=== PATIENT | male | born 1990 | race Caucasian/White ===

== ENCOUNTER 2017-06-27 11:55 | Inpatient (IN) | payer SELFPAY, MEDICAID ==
[2017-06-27] MEDS: NS 1,000 ML IV (12:15)
[2017-06-27 12:49] LABS: BASO # 0.1 10^3/uL (0.0-0.2); BASO % 0.6 % (0.0-1.0); EOS % 0.2 % (0.0-3.0); HEMATOCRIT 46.4 % (42.0-52.0); HEMOGLOBIN 16.8 g/dl (14.0-18.0); IMMATURE GRANULOCYTE % 0.6 % (0-3.0); LYMPH # 0.7 10^3/uL (1.5-6.5); LYMPH % 8.6 % (24.0-44.0); MEAN CORPUSCULAR HEMOGLOBIN 35.1 pg (27.0-33.0); MEAN CORPUSCULAR HGB CONC 36.2 g/dl (32.0-36.5); MEAN CORPUSCULAR VOLUME 96.9 fl (80.0-96.0); MONO # 0.4 10^3/uL (0.0-0.8); MONO % 4.5 % (0.0-5.0); NEUTROPHILS # 7.1 10^3/uL (1.8-7.7); NEUTROPHILS % 85.5 % (36.0-66.0); PLATELET COUNT, AUTOMATED 179 10^3/uL (150-450); RED BLOOD COUNT 4.79 10^6/uL (4.30-6.10); RED CELL DISTRIBUTION WIDTH 12.8 % (11.5-14.5); WHITE BLOOD COUNT 8.3 10^3/uL (4.0-10.0)
[2017-06-27] MEDS: PANTOPRAZOLE 40MG INJ (PROTONIX) (C9113) IV (13:15)
[2017-06-27 13:16] LABS: AMMONIA 48 uMOL/L (<32)
[2017-06-27] MEDS: OXAZEPAM 10 MG CAP PO (13:17)
[2017-06-27 13:18] LABS: OSMOLALITY SERUM 289 MOSM/KG (275-295)
[2017-06-27 13:21] LABS: ALBUMIN 4.8 GM/DL (3.2-5.2); ALKALINE PHOSPHATASE 126 U/L (45-117); ALT/SGPT 143 U/L (12-78); ANION GAP 14 MEQ/L (8-16); AST/SGOT 315 U/L (7-37); BILIRUBIN,DIRECT 0.6 MG/DL (0.0-0.2); BILIRUBIN,TOTAL 1.5 MG/DL (0.2-1.0); BLOOD UREA NITROGEN 4 MG/DL (7-18); CALCIUM LEVEL 9.8 MG/DL (8.5-10.1); CARBON DIOXIDE LEVEL 24 MEQ/L (21-32); CHLORIDE LEVEL 98 MEQ/L (98-107); CPK CREATINE PHOSPHOKINASE 106 U/L (39-308); CREATININE FOR GFR 0.96 MG/DL (0.70-1.30); ETHYL ALCOHOL (ETHANOL) < 0.003 % (0.000-0.010); FREE THYROXINE INDEX 3.9 % (1.4-3.8); GLOMERULAR FILTRATION RATE > 60.0 (>60); GLUCOSE, FASTING 159 MG/DL (70-100); POTASSIUM SERUM 3.8 MEQ/L (3.5-5.1); SALICYLATE LEVEL 2.6 MG/DL (5.0-30.0); SODIUM LEVEL 136 MEQ/L (136-145); T UPTAKE 36 % (33-40); THYROXINE (T4) 10.7 UG/DL (4.5-12.0); TROPONIN I < 0.02 NG/ML (< 0.10)
[2017-06-27] MEDS: MULTIVITAMIN -ADULT INJECTION 10 ML, THIAMINE INJection 100 MG, FOLIC ACID 1 MG in NS 1... IV ×2 (13:21→21:39)
[2017-06-27] MEDS: ONDANSETRON 4MG/2ML VIAL (J2405) IV (13:25)
[2017-06-27 13:26] LABS: MB/CK RELATIVE INDEX 0.94 (< OR =4)
[2017-06-27 13:27] LABS: ACETAMINOPHEN LEVEL < 2.0 UG/ML (10.0-30.0)
[2017-06-27 13:28] LABS: LACTIC ACID SEPSIS PROTOCOL 5.6 MMOL/L (0.4-2.0)
[2017-06-27 13:49] LABS: AMPHETAMINES LEVEL URINE NEGATIVE (NEGATIVE); BARBITURATES URINE NEGATIVE (NEGATIVE); BENZODIAZEPINES URINE NEGATIVE (NEGATIVE); CANNABINOIDS URINE POSITIVE (NEGATIVE); COCAINE METABOLITE URINE NEGATIVE (NEGATIVE); METHADONE URINE NEGATIVE (NEGATIVE); OPIATES URINE NEGATIVE (NEGATIVE); PHENCYCLIDINE URINE NEGATIVE (NEGATIVE)
[2017-06-27] MEDS: SUCRALFATE 1 GM TAB PO (13:59)
[2017-06-27] MEDS: LORazepam 2 MG/ML VIAL (J2060) IV (13:59)
[2017-06-27 14:37] LABS: INR 0.89; PROTHROMBIN TIME 12.1 SECONDS (12.4-14.5)
[2017-06-27] MEDS ORDERED: LORazepam 2 MG/ML VIAL (J2060) IV (14:45)
[2017-06-27] MEDS: LACTULOSE 20 GM/30 ML SYRUP UD PO ×2 (16:22→17:00)
[2017-06-27] MEDS: cloNIDine 0.2 MG TAB PO ×3 (16:24→23:55)
[2017-06-27] MEDS ORDERED: GLUCAGON FOR INJ 1 MG VIAL (J1610) SC (16:45)
[2017-06-27] MEDS ORDERED: GLUCOSE 4 GM CHEW TABLET PO (16:45)
[2017-06-27] MEDS ORDERED: DEXTROSE 50% 50 ML SYRINGE IV (16:45)
[2017-06-27] MEDS: OXAZEPAM 15 MG CAP PO ×2 (17:38→23:55)
[2017-06-27 18:38] LABS: LACTIC ACID SEPSIS PROTOCOL 1.1 MMOL/L (0.4-2.0)
[2017-06-27] MEDS: HEPARIN SOD (PORCINE) 5000 UNITS/ML VIAL SC (21:39)
[2017-06-28] MEDS: cloNIDine 0.2 MG TAB PO ×2 (04:00→08:00)
[2017-06-28 05:18] LABS: BASO % 0.4 % (0.0-1.0); EOS % 0.4 % (0.0-3.0); HEMATOCRIT 40.1 % (42.0-52.0); IMMATURE GRANULOCYTE % 0.3 % (0-3.0); LYMPH % 13.9 % (24.0-44.0); MEAN CORPUSCULAR HEMOGLOBIN 34.6 pg (27.0-33.0); MEAN CORPUSCULAR HGB CONC 34.9 g/dl (32.0-36.5); MONO # 0.6 10^3/uL (0.0-0.8); MONO % 7.8 % (0.0-5.0); NEUTROPHILS # 5.8 10^3/uL (1.8-7.7); NEUTROPHILS % 77.2 % (36.0-66.0); PLATELET COUNT, AUTOMATED 127 10^3/uL (150-450); RED BLOOD COUNT 4.05 10^6/uL (4.30-6.10); RED CELL DISTRIBUTION WIDTH 12.8 % (11.5-14.5); WHITE BLOOD COUNT 7.5 10^3/uL (4.0-10.0)
[2017-06-28 05:50] LABS: ALBUMIN 3.5 GM/DL (3.2-5.2); ALBUMIN/GLOBULIN RATIO 1.35 (1.00-1.93); ALKALINE PHOSPHATASE 90 U/L (45-117); ALT/SGPT 92 U/L (12-78); ANION GAP 8 MEQ/L (8-16); AST/SGOT 148 U/L (7-37); BILIRUBIN,TOTAL 1.2 MG/DL (0.2-1.0); BLOOD UREA NITROGEN 3 MG/DL (7-18); CALCIUM LEVEL 8.5 MG/DL (8.5-10.1); CARBON DIOXIDE LEVEL 29 MEQ/L (21-32); CHLORIDE LEVEL 102 MEQ/L (98-107); CREATININE FOR GFR 0.71 MG/DL (0.70-1.30); GLOMERULAR FILTRATION RATE > 60.0 (>60); GLUCOSE, FASTING 77 MG/DL (70-100); POTASSIUM SERUM 3.2 MEQ/L (3.5-5.1); SODIUM LEVEL 139 MEQ/L (136-145); TOTAL PROTEIN 6.1 GM/DL (6.4-8.2)
[2017-06-28] MEDS: OXAZEPAM 15 MG CAP PO (05:54)
[2017-06-28] MEDS: HEPARIN SOD (PORCINE) 5000 UNITS/ML VIAL SC (05:54)
[2017-06-28] MEDS: FOLIC ACID 1 MG TAB PO (09:00)
[2017-06-28] MEDS: MULTIVITAMINS/MINERALS THERAP 1 TAB PO (09:00)
[2017-06-28] MEDS: THIAMINE 100 MG TAB PO (09:00)
[2017-06-28] MEDS: NICOTINE 21MG/24HR 1 EA TRANSDERMAL TD (11:01)
[2017-06-28] MEDS: POTASSIUM CHLORIDE 10 MEQ SR TABLET PO (11:02)
[2017-06-28 11:09] LABS: PROLACTIN 11.4 NG/ML (2.1-17.7)
[2017-06-28] MEDS ORDERED: OXAZEPAM 15 MG CAP PO (11:15)
== END 2017-06-28 12:00 | disposition left against medical advice (07) | DRG 770 ==
LOC: M ED 11:55 → M ED INP 14:30 → M PCU 16:59
DX: F10.239 Alcohol dependence with withdrawal, unspecified (principal); G93.41 Metabolic encephalopathy; R56.9 Unspecified convulsions; I42.6 Alcoholic cardiomyopathy; K70.10 Alcoholic hepatitis without ascites; E78.5 Hyperlipidemia, unspecified; F14.10 Cocaine abuse, uncomplicated; F12.10 Cannabis abuse, uncomplicated

== ENCOUNTER 2017-09-08 06:57 | Inpatient (IN) | payer OTHER, MEDICAID ==
[~2017-09-08 06:57] MED LIST: LORazepam 2 MG/ML VIAL (J2060) As Ordered
[2017-09-08] MEDS: DILUENT IV (07:12)
[2017-09-08] MEDS: NS IV (07:12)
[2017-09-08] MEDS: LORazepam 2 MG/ML VIAL (J2060) IV ×3 (07:14→08:52)
[2017-09-08] MEDS ORDERED: levETIRAcetam INJection 1,000 MG in D5W 100 ML IV (07:15)
[2017-09-08] MEDS: levETIRAcetam INJection 1,000 MG in D5W 100 ML IV (07:20)
[2017-09-08 07:22] LABS: ABG BASE EXCESS -10.5 (-2.0-2.0); ABG O2 SATURATION 99.2 % (95.0-99.0); ABG PARTIAL PRESSURE CO2 55.3 mmHg (35.0-45.0); ABG PARTIAL PRESSURE O2 222.3 mmHg (75.0-100.0); ABG STANDARD HCO3 16.6 MEQ/L (22.0-26.0); ABG TOTAL CO2 20.7 MEQ/L (22.0-29.0); ABG pH (ARTERIAL) 7.155 UNITS (7.350-7.450)
[2017-09-08 07:35] LABS: BASO # 0.1 10^3/uL (0.0-0.2); BASO % 0.4 % (0.0-1.0); EOS % 0.1 % (0.0-3.0); HEMATOCRIT 50.6 % (42.0-52.0); HEMOGLOBIN 17.8 g/dl (13.5-17.5); IMMATURE GRANULOCYTE % 1.4 % (0-3.0); LYMPH % 6.2 % (24.0-44.0); MEAN CORPUSCULAR HEMOGLOBIN 35.2 pg (27.0-33.0); MEAN CORPUSCULAR HGB CONC 35.2 g/dl (32.0-36.5); MEAN CORPUSCULAR VOLUME 100.2 fl (80.0-96.0); MONO # 0.2 10^3/uL (0.0-0.8); MONO % 1.3 % (0.0-5.0); NEUTROPHILS # 14.5 10^3/uL (1.8-7.7); NEUTROPHILS % 90.6 % (36.0-66.0); PLATELET COUNT, AUTOMATED 162 10^3/uL (150-450); RED BLOOD COUNT 5.05 10^6/uL (4.30-6.10); RED CELL DISTRIBUTION WIDTH 12.9 % (11.5-14.5)
[2017-09-08 08:03] LABS: OSMOLALITY SERUM 292 MOSM/KG (275-295)
[2017-09-08 08:03] LABS: AMMONIA 79 uMOL/L (<32)
[2017-09-08] MEDS ORDERED: PROPOFOL 1,000 MG/100 ML VIAL As Ordered (08:03)
[2017-09-08] MEDS: ETOMIDATE INJ 20MG/10ML VIAL IV (08:06)
[2017-09-08] MEDS: SUCCINYLCHOLINE INJ 200 MG/10 ML VIAL (J0330) IV (08:06)
[2017-09-08 08:10] LABS: ALBUMIN 4.5 GM/DL (3.2-5.2); ALBUMIN/GLOBULIN RATIO 1.45 (1.00-1.93); ALKALINE PHOSPHATASE 150 U/L (45-117); ALT/SGPT 191 U/L (12-78); ANION GAP 26 MEQ/L (8-16); AST/SGOT 565 U/L (7-37); BILIRUBIN,DIRECT 1.3 MG/DL (0.0-0.2); BILIRUBIN,TOTAL 2.3 MG/DL (0.2-1.0); BLOOD UREA NITROGEN 7 MG/DL (7-18); CARBON DIOXIDE LEVEL 21 MEQ/L (21-32); CHLORIDE LEVEL 91 MEQ/L (98-107); CREATININE FOR GFR 2.12 MG/DL (0.70-1.30); ETHYL ALCOHOL (ETHANOL) < 0.003 % (0.000-0.010); GLOMERULAR FILTRATION RATE 40.4 (>60); POTASSIUM SERUM 3.7 MEQ/L (3.5-5.1); SALICYLATE LEVEL < 1.7 MG/DL (5.0-30.0); SODIUM LEVEL 138 MEQ/L (136-145); TOTAL PROTEIN 7.6 GM/DL (6.4-8.2)
[2017-09-08 08:10] LABS: LACTIC ACID SEPSIS PROTOCOL 11.3 MMOL/L (0.4-2.0)
[2017-09-08] MEDS: PROPOFOL 1,000 MG in APPROPRIATE DILUENT 1 EA IV ×3 (08:15→22:29)
[2017-09-08 08:19] LABS: CPK CREATINE PHOSPHOKINASE 1479 U/L (39-308)
[2017-09-08] MEDS ORDERED: MIDAZOLAM HCL 50 MG in D5W 40 ML IV (08:45)
[2017-09-08 08:51] LABS: GLUCOSE, FASTING 31 MG/DL (70-100)
[2017-09-08 08:56] LABS: ACETAMINOPHEN LEVEL < 2.0 UG/ML (10.0-30.0)
[2017-09-08] MEDS ORDERED: DEXTROSE 50% 50 ML SYRINGE As Ordered (08:58)
[2017-09-08] MEDS: THIAMINE HCL 200 MG/2 ML VIAL (J3411) IM ×2 (09:00→09:28)
[2017-09-08 09:05] LABS: ABG BASE EXCESS -8.2 (-2.0-2.0); ABG HCO3 19.3 MEQ/L (22.0-26.0); ABG O2 SATURATION 97.6 % (95.0-99.0); ABG PARTIAL PRESSURE CO2 46.8 mmHg (35.0-45.0); ABG PARTIAL PRESSURE O2 116.6 mmHg (75.0-100.0); ABG TOTAL CO2 20.8 MEQ/L (22.0-29.0)
[2017-09-08 09:07] LABS: ABG pH (ARTERIAL) 7.234 UNITS (7.350-7.450)
[2017-09-08] MEDS: DEXTROSE 50% 50 ML SYRINGE IV (09:07)
[2017-09-08] MEDS: MIDAZOLAM HCL 100 MG in D5W 80 ML IV (09:16)
[2017-09-08 09:49] LABS: BEDSIDE GLUCOSE 149 MG/DL (70-105)
[2017-09-08 09:53] LABS: MAGNESIUM LEVEL 2.5 MG/DL (1.8-2.4)
[2017-09-08 10:15] LABS: AMPHETAMINES LEVEL URINE NEGATIVE (NEGATIVE); BARBITURATES URINE NEGATIVE (NEGATIVE); BENZODIAZEPINES URINE POSITIVE (NEGATIVE); CANNABINOIDS URINE POSITIVE (NEGATIVE); COCAINE METABOLITE URINE NEGATIVE (NEGATIVE); METHADONE URINE NEGATIVE (NEGATIVE); OPIATES URINE NEGATIVE (NEGATIVE); PHENCYCLIDINE URINE NEGATIVE (NEGATIVE)
[2017-09-08] MEDS: METOPROLOL 5 MG/5 ML VIAL IV (10:15)
[2017-09-08] MEDS ORDERED: DEXTROSE 50% 50 ML SYRINGE IV (10:45)
[2017-09-08] MEDS ORDERED: GLUCOSE 4 GM CHEW TABLET PO (10:45)
[2017-09-08] MEDS ORDERED: GLUCAGON FOR INJ 1 MG VIAL (J1610) SC (10:45)
[2017-09-08 11:15] LABS: ABG O2 SATURATION 98.2 % (95.0-99.0)
[2017-09-08 11:17] LABS: ABG BASE EXCESS -5.1 (-2.0-2.0); ABG HCO3 21.7 MEQ/L (22.0-26.0); ABG PARTIAL PRESSURE CO2 46.6 mmHg (35.0-45.0); ABG PARTIAL PRESSURE O2 123.4 mmHg (75.0-100.0); ABG STANDARD HCO3 20.3 MEQ/L (22.0-26.0); ABG TOTAL CO2 23.1 MEQ/L (22.0-29.0); ABG pH (ARTERIAL) 7.286 UNITS (7.350-7.450)
[2017-09-08] MEDS: D5W/0.9% SODIUM CHLORIDE 1,000 ML IV ×2 (11:19→22:27)
[2017-09-08] MEDS: PANTOPRAZOLE 40MG INJ (PROTONIX) (C9113) IV (12:04)
[2017-09-08 12:13] LABS: BEDSIDE GLUCOSE 121 MG/DL (70-105)
[2017-09-08] MEDS: HumaLOG INSULIN (NovoLOG) PER UNIT SC ×2 (12:15→18:05)
[2017-09-08] MEDS: IPRATROPIUM 0.5MG/ALBUTEROL 2.5MG INH SOL UD 3ML (DUONEB)(J7620) NEB ×2 (12:54→20:18)
[2017-09-08] MEDS ORDERED: SUCCINYLCHOLINE 100 MG/5 ML SYRINGE (J0330) (13:56)
[2017-09-08] MEDS ORDERED: ETOMIDATE INJ 20MG/10ML VIAL (13:56)
[2017-09-08] MEDS: LACTULOSE 20 GM/30 ML SYRUP UD PO (14:29)
[2017-09-08] MEDS: HEPARIN SOD (PORCINE) 5000 UNITS/ML VIAL SC ×2 (14:30→20:26)
[2017-09-08 14:39] LABS: ABG BASE EXCESS -4.2 (-2.0-2.0); ABG HCO3 19.6 MEQ/L (22.0-26.0); ABG O2 SATURATION 98.8 % (95.0-99.0); ABG PARTIAL PRESSURE CO2 32.6 mmHg (35.0-45.0); ABG PARTIAL PRESSURE O2 126.2 mmHg (75.0-100.0); ABG STANDARD HCO3 21.1 MEQ/L (22.0-26.0); ABG TOTAL CO2 20.6 MEQ/L (22.0-29.0); ABG pH (ARTERIAL) 7.396 UNITS (7.350-7.450)
[2017-09-08 15:21] LABS: ALBUMIN 3.4 GM/DL (3.2-5.2); ANION GAP 14 MEQ/L (8-16); BLOOD UREA NITROGEN 10 MG/DL (7-18); CALCIUM LEVEL 7.3 MG/DL (8.5-10.1); CARBON DIOXIDE LEVEL 23 MEQ/L (21-32); CHLORIDE LEVEL 101 MEQ/L (98-107); CREATININE FOR GFR 2.08 MG/DL (0.70-1.30); GLOMERULAR FILTRATION RATE 41.3 (>60); GLUCOSE, FASTING 123 MG/DL (70-100); PHOSPHORUS LEVEL 3.5 MG/DL (2.5-4.9); POTASSIUM SERUM 2.9 MEQ/L (3.5-5.1); SODIUM LEVEL 138 MEQ/L (136-145)
[2017-09-08 15:27] LABS: CK-MB VALUE MASS 147.3 NG/ML (<3.6)
[2017-09-08 16:15] LABS: CPK CREATINE PHOSPHOKINASE 33300 U/L (39-308); MB/CK RELATIVE INDEX 0.44 (< OR =4)
[2017-09-08] MEDS: KCL 10MEQ/100ML SWI (KRUN) 10 MEQ in APPROPRIATE DILUENT 1 EA IV ×3 (16:30→18:56)
[2017-09-08 18:04] LABS: BEDSIDE GLUCOSE 125 MG/DL (70-105)
[2017-09-08] MEDS: NYSTATIN 100,000 UNITS/GM TOPICAL PWD 15 GM TOP (20:25)
[2017-09-08] MEDS: CHLORHEXIDINE ORAL RINSE 0.12%/15ML 120ML BOTTLE MT ×3 (20:26→21:00)
[2017-09-09] MEDS: METOPROLOL 5 MG/5 ML VIAL IV ×3 (00:50→06:37)
[2017-09-09 01:05] LABS: BEDSIDE GLUCOSE 129 MG/DL (70-105)
[2017-09-09] MEDS: HumaLOG INSULIN (NovoLOG) PER UNIT SC ×4 (01:10→18:00)
[2017-09-09] MEDS: PROPOFOL 1,000 MG in APPROPRIATE DILUENT 1 EA IV ×4 (03:40→20:44)
[2017-09-09 05:13] LABS: HEMATOCRIT 51.2 % (42.0-52.0); MEAN CORPUSCULAR HEMOGLOBIN 35.2 pg (27.0-33.0); MEAN CORPUSCULAR HGB CONC 35.2 g/dl (32.0-36.5); RED BLOOD COUNT 5.12 10^6/uL (4.30-6.10)
[2017-09-09 05:21] LABS: INR 1.38; PROTHROMBIN TIME 17.3 SECONDS (12.4-14.5)
[2017-09-09 05:22] LABS: PARTIAL THROMBOPLASTIN TIME 48.6 SECONDS (26.8-37.9)
[2017-09-09 05:27] LABS: AMMONIA 82 uMOL/L (<32)
[2017-09-09 05:49] LABS: ADD MANUAL DIFFER YES; DIFF SLIDE NUMBER 71; PLATELET COUNT, AUTOMATED 75 10^3/uL (150-450); POSITIVE MORPH POS FLAG
[2017-09-09 05:51] LABS: ALBUMIN 3.1 GM/DL (3.2-5.2); ALBUMIN/GLOBULIN RATIO 1.24 (1.00-1.93); ALKALINE PHOSPHATASE 100 U/L (45-117); ALT/SGPT 808 U/L (12-78); ANION GAP 15 MEQ/L (8-16); BILIRUBIN,TOTAL 3.1 MG/DL (0.2-1.0); BLOOD UREA NITROGEN 16 MG/DL (7-18); CALCIUM LEVEL 7.1 MG/DL (8.5-10.1); CARBON DIOXIDE LEVEL 21 MEQ/L (21-32); CHLORIDE LEVEL 104 MEQ/L (98-107); CHOLESTEROL LEVEL 147 MG/DL (< 200); CREATININE FOR GFR 3.59 MG/DL (0.70-1.30); GLUCOSE, FASTING 116 MG/DL (70-100); LDH LACTATE DEHYDROGENASE 2842 U/L (87-241); PHOSPHORUS LEVEL 2.3 MG/DL (2.5-4.9); POTASSIUM SERUM 3.2 MEQ/L (3.5-5.1); SODIUM LEVEL 140 MEQ/L (136-145); TOTAL PROTEIN 5.6 GM/DL (6.4-8.2); TRIGLYCERIDES LEVEL 521 MG/DL (<150)
[2017-09-09 05:56] LABS: BANDS 1 % (< 11); EOSINOPHILS 1 % (0-5); LYMPHOCYTES 6 % (16-52); NEUTROPHILS 92 % (35-75); PLATELET ESTIMATE DECREASED (NORMAL)
[2017-09-09] MEDS: HEPARIN SOD (PORCINE) 5000 UNITS/ML VIAL SC ×3 (06:00→22:00)
[2017-09-09] MEDS: MIDAZOLAM INJ 2 MG/2 ML VIAL (J2250) IV ×9 (06:03→23:24)
[2017-09-09 06:26] LABS: BEDSIDE GLUCOSE 119 MG/DL (70-105)
[2017-09-09] MEDS: D5W/0.9% SODIUM CHLORIDE 1,000 ML IV (06:27)
[2017-09-09] MEDS ORDERED: METOPROLOL 5 MG/5 ML VIAL As Ordered (06:27)
[2017-09-09 06:28] LABS: ABG BASE EXCESS -2.6 (-2.0-2.0); ABG HCO3 21.3 MEQ/L (22.0-26.0); ABG O2 SATURATION 91.1 % (95.0-99.0); ABG PARTIAL PRESSURE CO2 35.2 mmHg (35.0-45.0); ABG PARTIAL PRESSURE O2 60.1 mmHg (75.0-100.0); ABG STANDARD HCO3 22.1 MEQ/L (22.0-26.0); ABG TOTAL CO2 22.4 MEQ/L (22.0-29.0)
[2017-09-09 06:33] LABS: AST/SGOT 5600 U/L (7-37)
[2017-09-09] MEDS: IPRATROPIUM 0.5MG/ALBUTEROL 2.5MG INH SOL UD 3ML (DUONEB)(J7620) NEB ×4 (07:12→20:03)
[2017-09-09 07:57] LABS: CPK CREATINE PHOSPHOKINASE 78836 U/L (39-308)
[2017-09-09] MEDS ORDERED: LIDOCAINE 1% MDV 20ML VIAL As Ordered (09:52)
[2017-09-09] MEDS: HEPARIN 1,000 UNITS/ML 10ML VIAL (FOR RADIOLOGY& DIALYSIS ONLY) IV (10:30)
[2017-09-09] MEDS: PANTOPRAZOLE 40MG INJ (PROTONIX) (C9113) IV (11:39)
[2017-09-09] MEDS: NYSTATIN 100,000 UNITS/GM TOPICAL PWD 15 GM TOP ×2 (11:39→20:51)
[2017-09-09] MEDS: THIAMINE HCL 200 MG/2 ML VIAL (J3411) IM (11:40)
[2017-09-09] MEDS: LACTULOSE 20 GM/30 ML SYRUP UD PO ×2 (11:40→20:51)
[2017-09-09] MEDS: CHLORHEXIDINE ORAL RINSE 0.12%/15ML 120ML BOTTLE MT ×2 (11:41→20:51)
[2017-09-09 12:38] LABS: BEDSIDE GLUCOSE 136 MG/DL (70-105)
[2017-09-09 13:20] LABS: CPK CREATINE PHOSPHOKINASE 67038 U/L (39-308)
[2017-09-09] MEDS ORDERED: SODIUM CHLORIDE 0.9% INJ 10 ML SYR IV (13:30)
[2017-09-09] MEDS: D10W 1,000 ML IV (14:29)
[2017-09-09 16:00] LABS: MAGNESIUM LEVEL 2.2 MG/DL (1.8-2.4)
[2017-09-09 17:57] LABS: BEDSIDE GLUCOSE 86 MG/DL (70-105)
[2017-09-10] MEDS: PROPOFOL 1,000 MG in APPROPRIATE DILUENT 1 EA IV ×7 (00:26→22:00)
[2017-09-10 00:47] LABS: BEDSIDE GLUCOSE 101 MG/DL (70-105)
[2017-09-10] MEDS: MIDAZOLAM INJ 2 MG/2 ML VIAL (J2250) IV ×7 (03:17→22:25)
[2017-09-10 05:21] LABS: HEMATOCRIT 47.6 % (42.0-52.0); HEMOGLOBIN 16.8 g/dl (13.5-17.5); MEAN CORPUSCULAR HEMOGLOBIN 35.4 pg (27.0-33.0); MEAN CORPUSCULAR HGB CONC 35.3 g/dl (32.0-36.5); MEAN CORPUSCULAR VOLUME 100.4 fl (80.0-96.0); RED BLOOD COUNT 4.74 10^6/uL (4.30-6.10); RED CELL DISTRIBUTION WIDTH 12.9 % (11.5-14.5); WHITE BLOOD COUNT 6.8 10^3/uL (4.0-10.0)
[2017-09-10 05:34] LABS: ABG BASE EXCESS -3.5 (-2.0-2.0); ABG O2 SATURATION 94.3 % (95.0-99.0); ABG PARTIAL PRESSURE CO2 28.7 mmHg (35.0-45.0); ABG PARTIAL PRESSURE O2 67.8 mmHg (75.0-100.0); ABG STANDARD HCO3 21.5 MEQ/L (22.0-26.0); ABG TOTAL CO2 19.8 MEQ/L (22.0-29.0); ABG pH (ARTERIAL) 7.438 UNITS (7.350-7.450)
[2017-09-10 05:42] LABS: PARTIAL THROMBOPLASTIN TIME 35.2 SECONDS (26.8-37.9); PROTHROMBIN TIME 17.5 SECONDS (12.4-14.5)
[2017-09-10 05:43] LABS: ANION GAP 15 MEQ/L (8-16); BLOOD UREA NITROGEN 17 MG/DL (7-18); CALCIUM LEVEL 7.5 MG/DL (8.5-10.1); CARBON DIOXIDE LEVEL 23 MEQ/L (21-32); CHLORIDE LEVEL 101 MEQ/L (98-107); CREATININE FOR GFR 4.28 MG/DL (0.70-1.30); GLUCOSE, FASTING 126 MG/DL (70-100); MAGNESIUM LEVEL 2.1 MG/DL (1.8-2.4); POTASSIUM SERUM 3.7 MEQ/L (3.5-5.1); SODIUM LEVEL 139 MEQ/L (136-145)
[2017-09-10 05:48] LABS: ADD MANUAL DIFFER YES; DIFF SLIDE NUMBER 40; IMMATURE PLATELET FRACTION % 9.1 % (0.0-10.9); PLATELET COUNT, AUTOMATED 74 10^3/uL (150-450); POSITIVE MORPH POS FLAG
[2017-09-10 05:53] LABS: BEDSIDE GLUCOSE 118 MG/DL (70-105)
[2017-09-10] MEDS: HumaLOG INSULIN (NovoLOG) PER UNIT SC ×4 (05:59→18:00)
[2017-09-10] MEDS: HEPARIN SOD (PORCINE) 5000 UNITS/ML VIAL SC ×4 (05:59→21:14)
[2017-09-10 06:02] LABS: PHOSPHORUS LEVEL 1.8 MG/DL (2.5-4.9)
[2017-09-10 06:14] LABS: BLOOD UREA NITROGEN 18 MG/DL (7-18); CREATININE FOR GFR 4.31 MG/DL (0.70-1.30); GLOMERULAR FILTRATION RATE 17.8 (>60); GLUCOSE, FASTING 124 MG/DL (70-100); POTASSIUM SERUM 3.6 MEQ/L (3.5-5.1); SODIUM LEVEL 139 MEQ/L (136-145)
[2017-09-10 06:15] LABS: ALT/SGPT 1777 U/L (12-78); ANION GAP 16 MEQ/L (8-16); CALCIUM LEVEL 7.5 MG/DL (8.5-10.1); CARBON DIOXIDE LEVEL 23 MEQ/L (21-32); CHLORIDE LEVEL 100 MEQ/L (98-107); CPK CREATINE PHOSPHOKINASE 32789 U/L (39-308); LDH LACTATE DEHYDROGENASE 3887 U/L (87-241); PHOSPHORUS LEVEL 1.8 MG/DL (2.5-4.9)
[2017-09-10 06:16] LABS: ALBUMIN/GLOBULIN RATIO 1.36 (1.00-1.93); ALKALINE PHOSPHATASE 114 U/L (45-117); BILIRUBIN,TOTAL 3.7 MG/DL (0.2-1.0); CHOLESTEROL LEVEL 94 MG/DL (< 200); TOTAL PROTEIN 5.2 GM/DL (6.4-8.2); TRIGLYCERIDES LEVEL 787 MG/DL (<150)
[2017-09-10 06:31] LABS: ATYPICAL LYMPH 1 % (0-5); BANDS 8 % (< 11); EOSINOPHILS 1 % (0-5); LYMPHOCYTES 9 % (16-52); MONOCYTES 3 % (0-8); NEUTROPHILS 78 % (35-75)
[2017-09-10 06:33] LABS: PLATELET ESTIMATE DECREASED (NORMAL)
[2017-09-10] MEDS: KCL 10MEQ/100ML SWI (KRUN) 10 MEQ in APPROPRIATE DILUENT 1 EA IV ×2 (06:33→07:40)
[2017-09-10 06:34] LABS: SMUDGE CELLS 1+; TOXIC VACUOLATION 1+
[2017-09-10 06:38] LABS: TOXIC GRANULATION 1+
[2017-09-10 06:45] LABS: AST/SGOT 9853 U/L (7-37)
[2017-09-10] MEDS: IPRATROPIUM 0.5MG/ALBUTEROL 2.5MG INH SOL UD 3ML (DUONEB)(J7620) NEB ×4 (07:06→19:37)
[2017-09-10] MEDS: CALCIUM GLUCONATE 1,000 MG in NS 100 ML IV ×2 (07:40→17:03)
[2017-09-10] MEDS: CHLORHEXIDINE ORAL RINSE 0.12%/15ML 120ML BOTTLE MT ×2 (08:12→21:15)
[2017-09-10] MEDS: NYSTATIN 100,000 UNITS/GM TOPICAL PWD 15 GM TOP ×2 (08:12→21:14)
[2017-09-10] MEDS: LACTULOSE 20 GM/30 ML SYRUP UD PO ×2 (08:12→21:14)
[2017-09-10] MEDS: THIAMINE HCL 200 MG/2 ML VIAL (J3411) IM (08:12)
[2017-09-10] MEDS: PANTOPRAZOLE 40MG INJ (PROTONIX) (C9113) IV (08:12)
[2017-09-10 10:50] LABS: HEPATITIS B SURFACE ANTIBODY NEGATIVE (POSITIVE)
[2017-09-10 10:57] LABS: HEPATITIS B SURFACE ANTIGEN NEGATIVE (NEGATIVE)
[2017-09-10 11:25] LABS: HEPATITIS B CORE ANTIBODY IGM NEGATIVE (NEGATIVE); HEPATITIS C VIRUS ABY INDEX < 0.0 INDEX (<0.8)
[2017-09-10 11:28] LABS: BEDSIDE GLUCOSE 94 MG/DL (70-105)
[2017-09-10] MEDS: D10W 1,000 ML IV (13:08)
[2017-09-10 16:15] LABS: HEMATOCRIT 45.7 % (42.0-52.0); MEAN CORPUSCULAR HEMOGLOBIN 35.1 pg (27.0-33.0); MEAN CORPUSCULAR VOLUME 100.2 fl (80.0-96.0); RED BLOOD COUNT 4.56 10^6/uL (4.30-6.10)
[2017-09-10 16:15] LABS: IONIZED CALCIUM 4.1 MG/DL (4.5-5.3)
[2017-09-10 16:16] LABS: PLATELET COUNT, AUTOMATED 78 10^3/uL (150-450); POS COUNT POS FLAG
[2017-09-10 16:41] LABS: ANION GAP 11 MEQ/L (8-16); BLOOD UREA NITROGEN 18 MG/DL (7-18); CALCIUM LEVEL 7.8 MG/DL (8.5-10.1); CARBON DIOXIDE LEVEL 27 MEQ/L (21-32); CHLORIDE LEVEL 102 MEQ/L (98-107); CREATININE FOR GFR 3.64 MG/DL (0.70-1.30); GLOMERULAR FILTRATION RATE 21.7 (>60); GLUCOSE, FASTING 136 MG/DL (70-100); MAGNESIUM LEVEL 2.3 MG/DL (1.8-2.4); PHOSPHORUS LEVEL 2.1 MG/DL (2.5-4.9); POTASSIUM SERUM 3.8 MEQ/L (3.5-5.1); SODIUM LEVEL 140 MEQ/L (136-145)
[2017-09-10] MEDS: KCL 20MEQ IN 100ML SWI (KRUN) 20 MEQ in APPROPRIATE DILUENT 1 EA IV (17:04)
[2017-09-10] MEDS: SODIUM CHLORIDE 0.9% INJ 10 ML SYR IV (18:00)
[2017-09-10 18:27] LABS: BEDSIDE GLUCOSE 120 MG/DL (70-105)
[2017-09-11 00:08] LABS: HEPATITIS B CORE ANTIBODY IGG Negative (Negative)
[2017-09-11 00:24] LABS: BEDSIDE GLUCOSE 114 MG/DL (70-105)
[2017-09-11] MEDS: PROPOFOL 1,000 MG in APPROPRIATE DILUENT 1 EA IV ×5 (01:05→22:12)
[2017-09-11] MEDS: HEPARIN 1,000 UNITS/ML 10ML VIAL (FOR RADIOLOGY& DIALYSIS ONLY) IV (02:37)
[2017-09-11] MEDS: MIDAZOLAM INJ 2 MG/2 ML VIAL (J2250) IV (03:04)
[2017-09-11 04:09] LABS: ABG BASE EXCESS -2.1 (-2.0-2.0); ABG HCO3 20.8 MEQ/L (22.0-26.0); ABG O2 SATURATION 90.6 % (95.0-99.0); ABG PARTIAL PRESSURE CO2 31.2 mmHg (35.0-45.0); ABG PARTIAL PRESSURE O2 56.1 mmHg (75.0-100.0); ABG STANDARD HCO3 22.5 MEQ/L (22.0-26.0); ABG TOTAL CO2 21.7 MEQ/L (22.0-29.0); ABG pH (ARTERIAL) 7.441 UNITS (7.350-7.450)
[2017-09-11] MEDS ORDERED: MORPHINE 4 MG/ML 1ML VIAL/SYRINGE (J2270) As Ordered (04:42)
[2017-09-11] MEDS: MORPHINE 4 MG/ML 1ML VIAL/SYRINGE (J2270) IV ×3 (05:05→09:00)
[2017-09-11 05:08] LABS: HEMATOCRIT 45.4 % (42.0-52.0); HEMOGLOBIN 16.1 g/dl (13.5-17.5); MEAN CORPUSCULAR HEMOGLOBIN 35.5 pg (27.0-33.0); MEAN CORPUSCULAR HGB CONC 35.5 g/dl (32.0-36.5); RED BLOOD COUNT 4.54 10^6/uL (4.30-6.10); RED CELL DISTRIBUTION WIDTH 13.1 % (11.5-14.5); WHITE BLOOD COUNT 5.9 10^3/uL (4.0-10.0)
[2017-09-11] MEDS: PIPERACILLIN/TAZOBACTAM SOD 3.375 GM in D5W MINI-BAG PLUS 50 ML IV ×4 (05:10→23:22)
[2017-09-11] MEDS: SODIUM CHLORIDE 0.9% INJ 10 ML SYR IV ×2 (05:10→16:37)
[2017-09-11] MEDS: HEPARIN SOD (PORCINE) 5000 UNITS/ML VIAL SC ×3 (05:10→21:24)
[2017-09-11 05:31] LABS: ADD MANUAL DIFFER YES; DIFF SLIDE NUMBER 21; PLATELET COUNT, AUTOMATED 77 10^3/uL (150-450); POSITIVE DIFF POS FLAG; POSITIVE MORPH POS FLAG
[2017-09-11 05:35] LABS: BANDS 1 % (< 11); BASOPHILS 1 % (0-4); EOSINOPHILS 1 % (0-5); LYMPHOCYTES 6 % (16-52); METAMYELOCYTES 2 % (0-0); MONOCYTES 7 % (0-8); NEUTROPHILS 82 % (35-75); PLATELET ESTIMATE DECREASED (NORMAL); POLYCHROMASIA 1+
[2017-09-11 05:36] LABS: INR 1.07; PARTIAL THROMBOPLASTIN TIME 30.4 SECONDS (26.8-37.9)
[2017-09-11 05:37] LABS: TEAR DROP CELLS 1+
[2017-09-11] MEDS: HumaLOG INSULIN (NovoLOG) PER UNIT SC ×5 (06:00→23:22)
[2017-09-11 06:04] LABS: ABG BASE EXCESS -3.4 (-2.0-2.0); ABG HCO3 20.8 MEQ/L (22.0-26.0); ABG O2 SATURATION 91.7 % (95.0-99.0); ABG PARTIAL PRESSURE CO2 35.4 mmHg (35.0-45.0); ABG PARTIAL PRESSURE O2 61.4 mmHg (75.0-100.0); ABG STANDARD HCO3 21.5 MEQ/L (22.0-26.0); ABG TOTAL CO2 21.8 MEQ/L (22.0-29.0); ABG pH (ARTERIAL) 7.386 UNITS (7.350-7.450)
[2017-09-11 06:15] LABS: ALBUMIN 2.8 GM/DL (3.2-5.2); ALBUMIN/GLOBULIN RATIO 1.22 (1.00-1.93); ALKALINE PHOSPHATASE 147 U/L (45-117); ALT/SGPT 1188 U/L (12-78); ANION GAP 11 MEQ/L (8-16); AST/SGOT 2576 U/L (7-37); BILIRUBIN,TOTAL 4.2 MG/DL (0.2-1.0); BLOOD UREA NITROGEN 18 MG/DL (7-18); CALCIUM LEVEL 7.6 MG/DL (8.5-10.1); CARBON DIOXIDE LEVEL 26 MEQ/L (21-32); CHLORIDE LEVEL 100 MEQ/L (98-107); CHOLESTEROL LEVEL 66 MG/DL (< 200); CPK CREATINE PHOSPHOKINASE 12442 U/L (39-308); CREATININE FOR GFR 3.46 MG/DL (0.70-1.30); GLUCOSE, FASTING 145 MG/DL (70-100); LDH LACTATE DEHYDROGENASE 1258 U/L (87-241); MAGNESIUM LEVEL 2.3 MG/DL (1.8-2.4); PHOSPHORUS LEVEL 1.6 MG/DL (2.5-4.9); POTASSIUM SERUM 4.2 MEQ/L (3.5-5.1); SODIUM LEVEL 137 MEQ/L (136-145); TOTAL PROTEIN 5.1 GM/DL (6.4-8.2); TRIGLYCERIDES LEVEL 697 MG/DL (<150)
[2017-09-11] MEDS: METOCLOPRAMIDE INJ 10MG/2ML VIAL (J2765) IV ×4 (06:23→23:22)
[2017-09-11] MEDS: IPRATROPIUM 0.5MG/ALBUTEROL 2.5MG INH SOL UD 3ML (DUONEB)(J7620) NEB ×3 (06:55→19:54)
[2017-09-11] MEDS: CALCIUM GLUCONATE 1,000 MG in D5W MINI-BAG PLUS 100 ML IV (07:31)
[2017-09-11 08:09] LABS: TROPONIN I 2.17 NG/ML (< 0.10)
[2017-09-11] MEDS: NOREPINEPHRINE BITARTRATE 8 MG in D5W 492 ML IV (08:28)
[2017-09-11] MEDS: D10W 1,000 ML IV (08:38)
[2017-09-11] MEDS: THIAMINE HCL 200 MG/2 ML VIAL (J3411) IM (08:40)
[2017-09-11] MEDS: LACTULOSE 20 GM/30 ML SYRUP UD PO ×2 (08:40→21:24)
[2017-09-11] MEDS: CHLORHEXIDINE ORAL RINSE 0.12%/15ML 120ML BOTTLE MT ×2 (08:42→21:19)
[2017-09-11] MEDS: NYSTATIN 100,000 UNITS/GM TOPICAL PWD 15 GM TOP ×2 (08:42→21:19)
[2017-09-11] MEDS: PANTOPRAZOLE 40MG INJ (PROTONIX) (C9113) IV (08:42)
[2017-09-11 12:15] LABS: BEDSIDE GLUCOSE 136 MG/DL (70-105)
[2017-09-11] MEDS: SODIUM CHLORIDE 0.9% 1000 ML IV (13:30)
[2017-09-11 14:23] LABS: IONIZED CALCIUM 4.3 MG/DL (4.5-5.3)
[2017-09-11 14:27] LABS: HEMATOCRIT 44.3 % (42.0-52.0); HEMOGLOBIN 15.5 g/dl (13.5-17.5); MEAN CORPUSCULAR HEMOGLOBIN 35.5 pg (27.0-33.0); MEAN CORPUSCULAR VOLUME 101.4 fl (80.0-96.0); RED BLOOD COUNT 4.37 10^6/uL (4.30-6.10); RED CELL DISTRIBUTION WIDTH 13.2 % (11.5-14.5)
[2017-09-11 14:28] LABS: PLATELET COUNT, AUTOMATED 71 10^3/uL (150-450)
[2017-09-11 14:30] LABS: IMMATURE PLATELET FRACTION % 10.3 % (0.0-10.9)
[2017-09-11 14:51] LABS: ANION GAP 13 MEQ/L (8-16); BLOOD UREA NITROGEN 18 MG/DL (7-18); CALCIUM LEVEL 8.1 MG/DL (8.5-10.1); CARBON DIOXIDE LEVEL 25 MEQ/L (21-32); CHLORIDE LEVEL 100 MEQ/L (98-107); CREATININE FOR GFR 3.51 MG/DL (0.70-1.30); GLOMERULAR FILTRATION RATE 22.6 (>60); GLUCOSE, FASTING 169 MG/DL (70-100); MAGNESIUM LEVEL 2.3 MG/DL (1.8-2.4); PHOSPHORUS LEVEL 1.5 MG/DL (2.5-4.9); POTASSIUM SERUM 3.8 MEQ/L (3.5-5.1); SODIUM LEVEL 138 MEQ/L (136-145)
[2017-09-11] MEDS: CALCIUM GLUCONATE 1,000 MG in NS MINI-BAG PLUS 100 ML IV ×2 (15:37→16:37)
[2017-09-11 17:34] LABS: BEDSIDE GLUCOSE 236 MG/DL (70-105)
[2017-09-11] MEDS: KCL 20MEQ IN 100ML SWI (KRUN) 20 MEQ in APPROPRIATE DILUENT 1 EA IV (17:36)
[2017-09-11] MEDS: SODIUM PHOSPHATE INJ 30 MMOL in D5W 500 ML IV (19:20)
[2017-09-11 22:22] LABS: IONIZED CALCIUM 3.9 MG/DL (4.5-5.3)
[2017-09-11 22:48] LABS: ANION GAP 18 MEQ/L (8-16); BLOOD UREA NITROGEN 20 MG/DL (7-18); CALCIUM LEVEL 7.1 MG/DL (8.5-10.1); CARBON DIOXIDE LEVEL 24 MEQ/L (21-32); CHLORIDE LEVEL 92 MEQ/L (98-107); CREATININE FOR GFR 3.01 MG/DL (0.70-1.30); MAGNESIUM LEVEL 2.1 MG/DL (1.8-2.4); POTASSIUM SERUM 3.8 MEQ/L (3.5-5.1); SODIUM LEVEL 134 MEQ/L (136-145)
[2017-09-11 22:59] LABS: GLUCOSE, FASTING 493 MG/DL (70-100)
[2017-09-11 23:15] LABS: BEDSIDE GLUCOSE 133 MG/DL (70-105)
[2017-09-11 23:18] LABS: BEDSIDE GLUCOSE 134 MG/DL (70-105)
[2017-09-11 23:23] LABS: PHOSPHORUS LEVEL 20.1 MG/DL (2.5-4.9)
[2017-09-12 00:03] LABS: IONIZED CALCIUM 4.2 MG/DL (4.5-5.3)
[2017-09-12 00:30] LABS: ANION GAP 8 MEQ/L (8-16); BLOOD UREA NITROGEN 21 MG/DL (7-18); CALCIUM LEVEL 7.8 MG/DL (8.5-10.1); CARBON DIOXIDE LEVEL 28 MEQ/L (21-32); CHLORIDE LEVEL 103 MEQ/L (98-107); CREATININE FOR GFR 3.13 MG/DL (0.70-1.30); GLOMERULAR FILTRATION RATE 25.8 (>60); GLUCOSE, FASTING 126 MG/DL (70-100); MAGNESIUM LEVEL 2.3 MG/DL (1.8-2.4); PHOSPHORUS LEVEL 1.4 MG/DL (2.5-4.9); POTASSIUM SERUM 4.2 MEQ/L (3.5-5.1); SODIUM LEVEL 139 MEQ/L (136-145)
[2017-09-12] MEDS: CALCIUM GLUCONATE 1,000 MG in D5W MINI-BAG PLUS 100 ML IV ×3 (01:11→06:38)
[2017-09-12] MEDS: SODIUM PHOSPHATE INJ 30 MMOL in D5W 500 ML IV (02:11)
[2017-09-12 05:14] LABS: IONIZED CALCIUM 4.2 MG/DL (4.5-5.3)
[2017-09-12] MEDS: HEPARIN SOD (PORCINE) 5000 UNITS/ML VIAL SC (05:16)
[2017-09-12] MEDS: PIPERACILLIN/TAZOBACTAM SOD 3.375 GM in D5W MINI-BAG PLUS 50 ML IV ×4 (05:16→22:53)
[2017-09-12] MEDS: METOCLOPRAMIDE INJ 10MG/2ML VIAL (J2765) IV ×3 (05:16→17:47)
[2017-09-12 05:18] LABS: HEMATOCRIT 41.4 % (42.0-52.0); HEMOGLOBIN 14.7 g/dl (13.5-17.5); MEAN CORPUSCULAR HEMOGLOBIN 35.2 pg (27.0-33.0); MEAN CORPUSCULAR HGB CONC 35.5 g/dl (32.0-36.5); RED BLOOD COUNT 4.18 10^6/uL (4.30-6.10); RED CELL DISTRIBUTION WIDTH 13.1 % (11.5-14.5); WHITE BLOOD COUNT 6.2 10^3/uL (4.0-10.0)
[2017-09-12 05:19] LABS: ADD MANUAL DIFFER YES; DIFF SLIDE NUMBER 17; PLATELET COUNT, AUTOMATED 60 10^3/uL (150-450); POS COUNT POS FLAG; POSITIVE DIFF POS FLAG; POSITIVE MORPH POS FLAG
[2017-09-12 05:25] LABS: ABG HCO3 22.6 MEQ/L (22.0-26.0); ABG O2 SATURATION 96.2 % (95.0-99.0); ABG PARTIAL PRESSURE CO2 34.9 mmHg (35.0-45.0); ABG PARTIAL PRESSURE O2 79.5 mmHg (75.0-100.0); ABG STANDARD HCO3 23.6 MEQ/L (22.0-26.0); ABG TOTAL CO2 23.7 MEQ/L (22.0-29.0)
[2017-09-12 05:27] LABS: INR 0.93; PARTIAL THROMBOPLASTIN TIME 31.7 SECONDS (26.8-37.9); PROTHROMBIN TIME 12.5 SECONDS (12.4-14.5)
[2017-09-12 05:41] LABS: ATYPICAL LYMPH 1 % (0-5); BANDS 1 % (< 11); LYMPHOCYTES 6 % (16-52); MONOCYTES 8 % (0-8); MYELOCYTES 1 % (0-0); NEUTROPHILS 83 % (35-75); PLATELET ESTIMATE DECREASED (NORMAL); TOXIC GRANULATION 1+
[2017-09-12 05:42] LABS: TOXIC VACUOLATION 1+
[2017-09-12 05:57] LABS: ALBUMIN 2.3 GM/DL (3.2-5.2); ALBUMIN/GLOBULIN RATIO 0.96 (1.00-1.93); ALKALINE PHOSPHATASE 129 U/L (45-117); ALT/SGPT 629 U/L (12-78); ANION GAP 10 MEQ/L (8-16); AST/SGOT 733 U/L (7-37); BILIRUBIN,TOTAL 2.4 MG/DL (0.2-1.0); BLOOD UREA NITROGEN 25 MG/DL (7-18); CALCIUM LEVEL 8.2 MG/DL (8.5-10.1); CARBON DIOXIDE LEVEL 26 MEQ/L (21-32); CHLORIDE LEVEL 104 MEQ/L (98-107); CHOLESTEROL LEVEL 63 MG/DL (< 200); CPK CREATINE PHOSPHOKINASE 6460 U/L (39-308); CREATININE FOR GFR 3.54 MG/DL (0.70-1.30); GLOMERULAR FILTRATION RATE 22.4 (>60); GLUCOSE, FASTING 120 MG/DL (70-100); LDH LACTATE DEHYDROGENASE 755 U/L (87-241); MAGNESIUM LEVEL 2.3 MG/DL (1.8-2.4); PHOSPHORUS LEVEL 1.7 MG/DL (2.5-4.9); POTASSIUM SERUM 4.2 MEQ/L (3.5-5.1); SODIUM LEVEL 140 MEQ/L (136-145); TOTAL PROTEIN 4.7 GM/DL (6.4-8.2); TRIGLYCERIDES LEVEL 215 MG/DL (<150)
[2017-09-12] MEDS: HumaLOG INSULIN (NovoLOG) PER UNIT SC ×3 (06:00→17:46)
[2017-09-12] MEDS: SODIUM CHLORIDE 0.9% INJ 10 ML SYR IV ×2 (06:00→17:47)
[2017-09-12] MEDS: IPRATROPIUM 0.5MG/ALBUTEROL 2.5MG INH SOL UD 3ML (DUONEB)(J7620) NEB ×4 (08:12→19:56)
[2017-09-12] MEDS: NOREPINEPHRINE BITARTRATE 8 MG in D5W 492 ML IV (09:35)
[2017-09-12] MEDS: PANTOPRAZOLE 40MG INJ (PROTONIX) (C9113) IV (09:40)
[2017-09-12] MEDS: CHLORHEXIDINE ORAL RINSE 0.12%/15ML 120ML BOTTLE MT ×2 (09:40→21:25)
[2017-09-12] MEDS: LACTULOSE 20 GM/30 ML SYRUP UD PO (09:40)
[2017-09-12] MEDS: NYSTATIN 100,000 UNITS/GM TOPICAL PWD 15 GM TOP ×2 (09:40→21:25)
[2017-09-12] MEDS: THIAMINE HCL 200 MG/2 ML VIAL (J3411) IM (09:41)
[2017-09-12 10:11] LABS: AMMONIA < 10 uMOL/L (<32)
[2017-09-12 13:08] LABS: BEDSIDE GLUCOSE 121 MG/DL (70-105)
[2017-09-12 17:40] LABS: BEDSIDE GLUCOSE 133 MG/DL (70-105)
[2017-09-12] MEDS: VANCOMYCIN HCL 1,000 MG, VIAL MATE ADAPTER 1 EACH in D5W 250 ML IV (19:07)
[2017-09-12] MEDS: MORPHINE 4 MG/ML 1ML VIAL/SYRINGE (J2270) IV (21:24)
[2017-09-12 23:39] LABS: BEDSIDE GLUCOSE 113 MG/DL (70-105)
[2017-09-12 23:45] LABS: IONIZED CALCIUM 4.3 MG/DL (4.5-5.3)
[2017-09-12 23:46] LABS: HEMATOCRIT 36.2 % (42.0-52.0); HEMOGLOBIN 12.8 g/dl (13.5-17.5); MEAN CORPUSCULAR HEMOGLOBIN 34.8 pg (27.0-33.0); MEAN CORPUSCULAR HGB CONC 35.4 g/dl (32.0-36.5); MEAN CORPUSCULAR VOLUME 98.4 fl (80.0-96.0); RED BLOOD COUNT 3.68 10^6/uL (4.30-6.10); RED CELL DISTRIBUTION WIDTH 13.4 % (11.5-14.5); WHITE BLOOD COUNT 9.7 10^3/uL (4.0-10.0)
[2017-09-12 23:53] LABS: PLATELET COUNT, AUTOMATED 64 10^3/uL (150-450)
[2017-09-12 23:54] LABS: IMMATURE PLATELET FRACTION % 9.3 % (0.0-10.9)
[2017-09-13 00:23] LABS: ANION GAP 8 MEQ/L (8-16); BLOOD UREA NITROGEN 35 MG/DL (7-18); CALCIUM LEVEL 7.7 MG/DL (8.5-10.1); CARBON DIOXIDE LEVEL 27 MEQ/L (21-32); CHLORIDE LEVEL 103 MEQ/L (98-107); CREATININE FOR GFR 3.86 MG/DL (0.70-1.30); GLOMERULAR FILTRATION RATE 20.2 (>60); GLUCOSE, FASTING 101 MG/DL (70-100); MAGNESIUM LEVEL 2.4 MG/DL (1.8-2.4); PHOSPHORUS LEVEL 2.1 MG/DL (2.5-4.9); POTASSIUM SERUM 4.5 MEQ/L (3.5-5.1); SODIUM LEVEL 138 MEQ/L (136-145)
[2017-09-13] MEDS: CALCIUM GLUCONATE 1,000 MG in NS 100 ML IV ×2 (00:41→02:12)
[2017-09-13] MEDS: METOCLOPRAMIDE INJ 10MG/2ML VIAL (J2765) IV ×2 (00:42→05:50)
[2017-09-13] MEDS: SODIUM PHOSPHATE INJ 30 MMOL in D5W 250 ML IV (03:00)
[2017-09-13] MEDS: PIPERACILLIN/TAZOBACTAM SOD 3.375 GM in D5W MINI-BAG PLUS 50 ML IV ×2 (05:50→10:46)
[2017-09-13] MEDS: SODIUM CHLORIDE 0.9% INJ 10 ML SYR IV ×2 (05:51→17:55)
[2017-09-13 06:27] LABS: BEDSIDE GLUCOSE 107 MG/DL (70-105)
[2017-09-13 06:32] LABS: ABG BASE EXCESS 0.2 (-2.0-2.0); ABG HCO3 23.4 MEQ/L (22.0-26.0); ABG PARTIAL PRESSURE CO2 33.5 mmHg (35.0-45.0); ABG PARTIAL PRESSURE O2 64.3 mmHg (75.0-100.0); ABG STANDARD HCO3 24.6 MEQ/L (22.0-26.0); ABG TOTAL CO2 24.4 MEQ/L (22.0-29.0); ABG pH (ARTERIAL) 7.462 UNITS (7.350-7.450)
[2017-09-13 06:47] LABS: HEMATOCRIT 36.8 % (42.0-52.0); HEMOGLOBIN 13.2 g/dl (13.5-17.5); MEAN CORPUSCULAR HEMOGLOBIN 35.1 pg (27.0-33.0); MEAN CORPUSCULAR HGB CONC 35.9 g/dl (32.0-36.5); MEAN CORPUSCULAR VOLUME 97.9 fl (80.0-96.0); RED BLOOD COUNT 3.76 10^6/uL (4.30-6.10); RED CELL DISTRIBUTION WIDTH 13.3 % (11.5-14.5); WHITE BLOOD COUNT 11.7 10^3/uL (4.0-10.0)
[2017-09-13 06:48] LABS: IONIZED CALCIUM 4.1 MG/DL (4.5-5.3)
[2017-09-13 06:51] LABS: ADD MANUAL DIFFER YES; DIFF SLIDE NUMBER 8; PLATELET COUNT, AUTOMATED 63 10^3/uL (150-450); POS COUNT POS FLAG; POSITIVE MORPH POS FLAG
[2017-09-13 06:56] LABS: INR 0.93; PROTHROMBIN TIME 12.5 SECONDS (12.4-14.5)
[2017-09-13 06:57] LABS: PARTIAL THROMBOPLASTIN TIME 29.5 SECONDS (26.8-37.9)
[2017-09-13] MEDS: HumaLOG INSULIN (NovoLOG) PER UNIT SC ×2 (07:30)
[2017-09-13 07:34] LABS: ALBUMIN 2.2 GM/DL (3.2-5.2); ALBUMIN/GLOBULIN RATIO 0.79 (1.00-1.93); ALKALINE PHOSPHATASE 178 U/L (45-117); ALT/SGPT 397 U/L (12-78); ANION GAP 10 MEQ/L (8-16); AST/SGOT 403 U/L (7-37); BILIRUBIN,TOTAL 2.2 MG/DL (0.2-1.0); BLOOD UREA NITROGEN 34 MG/DL (7-18); CALCIUM LEVEL 8.1 MG/DL (8.5-10.1); CARBON DIOXIDE LEVEL 24 MEQ/L (21-32); CHLORIDE LEVEL 104 MEQ/L (98-107); CHOLESTEROL LEVEL 91 MG/DL (< 200); CPK CREATINE PHOSPHOKINASE 3240 U/L (39-308); CREATININE FOR GFR 3.34 MG/DL (0.70-1.30); GLOMERULAR FILTRATION RATE 23.9 (>60); GLUCOSE, FASTING 99 MG/DL (70-100); LDH LACTATE DEHYDROGENASE 742 U/L (87-241); MAGNESIUM LEVEL 2.4 MG/DL (1.8-2.4); PHOSPHORUS LEVEL 3.3 MG/DL (2.5-4.9); POTASSIUM SERUM 4.8 MEQ/L (3.5-5.1); SODIUM LEVEL 138 MEQ/L (136-145); TRIGLYCERIDES LEVEL 316 MG/DL (<150); VANCOMYCIN RANDOM 11.1 UG/ML
[2017-09-13 07:44] LABS: BANDS 8 % (< 11); LYMPHOCYTES 8 % (16-52); MONOCYTES 5 % (0-8); MYELOCYTES 1 % (0-0); NEUTROPHILS 78 % (35-75)
[2017-09-13 07:45] LABS: ANISOCYTOSIS 1+; PLATELET ESTIMATE DECREASED (NORMAL); POIKILOCYTOSIS 1+
[2017-09-13] MEDS: IPRATROPIUM 0.5MG/ALBUTEROL 2.5MG INH SOL UD 3ML (DUONEB)(J7620) NEB ×4 (08:00→20:00)
[2017-09-13] MEDS: CALCIUM GLUCONATE 1,000 MG in NS MINI-BAG PLUS 100 ML IV ×3 (08:47→16:40)
[2017-09-13] MEDS: THIAMINE HCL 200 MG/2 ML VIAL (J3411) IM (08:54)
[2017-09-13] MEDS: NYSTATIN 100,000 UNITS/GM TOPICAL PWD 15 GM TOP ×2 (08:54→21:04)
[2017-09-13] MEDS: VANCOMYCIN HCL 1,000 MG, VIAL MATE ADAPTER 1 EACH in D5W 250 ML IV (08:54)
[2017-09-13] MEDS: PANTOPRAZOLE 40MG INJ (PROTONIX) (C9113) IV (08:54)
[2017-09-13] MEDS: CHLORHEXIDINE ORAL RINSE 0.12%/15ML 120ML BOTTLE MT (08:54)
[2017-09-13 15:03] LABS: IONIZED CALCIUM 4.5 MG/DL (4.5-5.3)
[2017-09-13 15:38] LABS: ANION GAP 10 MEQ/L (8-16); BLOOD UREA NITROGEN 35 MG/DL (7-18); CARBON DIOXIDE LEVEL 25 MEQ/L (21-32); CHLORIDE LEVEL 104 MEQ/L (98-107); CREATININE FOR GFR 2.92 MG/DL (0.70-1.30); GLOMERULAR FILTRATION RATE 27.9 (>60); GLUCOSE, FASTING 88 MG/DL (70-100); MAGNESIUM LEVEL 2.5 MG/DL (1.8-2.4); PHOSPHORUS LEVEL 2.6 MG/DL (2.5-4.9); POTASSIUM SERUM 4.2 MEQ/L (3.5-5.1); SODIUM LEVEL 139 MEQ/L (136-145)
[2017-09-13] MEDS: PIPERACILLIN/TAZOBACTAM SOD 2.25 GM in D5W MINI-BAG PLUS 50 ML IV (17:50)
[2017-09-13] MEDS: LORazepam 2 MG/ML VIAL (J2060) IV (21:03)
[2017-09-14] MEDS: LORazepam 2 MG/ML VIAL (J2060) IV ×2 (00:10→18:12)
[2017-09-14] MEDS: PIPERACILLIN/TAZOBACTAM SOD 2.25 GM in D5W MINI-BAG PLUS 50 ML IV ×3 (02:52→18:13)
[2017-09-14] MEDS: HALOPERIDOL 5 MG/ML VIAL (J1630) IV (03:49)
[2017-09-14 05:07] LABS: BASO # 0.1 10^3/uL (0.0-0.2); BASO % 0.7 % (0.0-1.0); EOS # 0.1 10^3/uL (0.0-0.50); EOS % 0.6 % (0.0-3.0); HEMATOCRIT 34.5 % (42.0-52.0); HEMOGLOBIN 12.3 g/dl (13.5-17.5); LYMPH # 1.1 10^3/uL (1.5-6.5); LYMPH % 7.8 % (24.0-44.0); MEAN CORPUSCULAR HEMOGLOBIN 34.7 pg (27.0-33.0); MEAN CORPUSCULAR HGB CONC 35.7 g/dl (32.0-36.5); MEAN CORPUSCULAR VOLUME 97.5 fl (80.0-96.0); MONO # 1.2 10^3/uL (0.0-0.8); MONO % 8.3 % (0.0-5.0); NEUTROPHILS # 11.4 10^3/uL (1.8-7.7); NEUTROPHILS % 78.6 % (36.0-66.0); RED BLOOD COUNT 3.54 10^6/uL (4.30-6.10); RED CELL DISTRIBUTION WIDTH 13.2 % (11.5-14.5); WHITE BLOOD COUNT 14.5 10^3/uL (4.0-10.0)
[2017-09-14 05:27] LABS: PLATELET COUNT, AUTOMATED 52 10^3/uL (150-450)
[2017-09-14 05:28] LABS: IMMATURE PLATELET FRACTION % 10.1 % (0.0-10.9)
[2017-09-14 05:42] LABS: ALBUMIN 2.2 GM/DL (3.2-5.2); ALBUMIN/GLOBULIN RATIO 0.73 (1.00-1.93); ALKALINE PHOSPHATASE 151 U/L (45-117); ALT/SGPT 258 U/L (12-78); ANION GAP 9 MEQ/L (8-16); AST/SGOT 314 U/L (7-37); BILIRUBIN,TOTAL 1.9 MG/DL (0.2-1.0); BLOOD UREA NITROGEN 52 MG/DL (7-18); CALCIUM LEVEL 8.5 MG/DL (8.5-10.1); CARBON DIOXIDE LEVEL 22 MEQ/L (21-32); CHLORIDE LEVEL 104 MEQ/L (98-107); CHOLESTEROL LEVEL 96 MG/DL (< 200); CPK CREATINE PHOSPHOKINASE 2201 U/L (39-308); CREATININE FOR GFR 4.11 MG/DL (0.70-1.30); GLOMERULAR FILTRATION RATE 18.8 (>60); GLUCOSE, FASTING 81 MG/DL (70-100); LDH LACTATE DEHYDROGENASE 720 U/L (87-241); PHOSPHORUS LEVEL 2.2 MG/DL (2.5-4.9); SODIUM LEVEL 135 MEQ/L (136-145); TOTAL PROTEIN 5.2 GM/DL (6.4-8.2); TRIGLYCERIDES LEVEL 286 MG/DL (<150); VANCOMYCIN RANDOM 19.9 UG/ML
[2017-09-14] MEDS: SODIUM CHLORIDE 0.9% INJ 10 ML SYR IV ×2 (06:08→18:12)
[2017-09-14] MEDS: IPRATROPIUM 0.5MG/ALBUTEROL 2.5MG INH SOL UD 3ML (DUONEB)(J7620) NEB ×3 (07:47→19:43)
[2017-09-14] MEDS: NYSTATIN 100,000 UNITS/GM TOPICAL PWD 15 GM TOP ×2 (09:04→21:00)
[2017-09-14] MEDS: PANTOPRAZOLE 40MG INJ (PROTONIX) (C9113) IV (09:04)
[2017-09-14 10:30] LABS: C REACTIVE PROTEIN QUANTITATIV 8.02 MG/DL (0.00-0.30)
[2017-09-14 10:38] LABS: ERYTHROCYTE SEDIMENTATION RATE 9 mm/hr (0-15)
[2017-09-14] MEDS: **NOTE PATIENT COMMENT** MISC XX (16:09)
[2017-09-15] MEDS: PIPERACILLIN/TAZOBACTAM SOD 2.25 GM in D5W MINI-BAG PLUS 50 ML IV ×2 (01:46→09:33)
[2017-09-15] MEDS: LORazepam 1 MG TAB PO ×3 (03:05→22:44)
[2017-09-15 05:04] LABS: BASO # 0.1 10^3/uL (0.0-0.2); BASO % 0.5 % (0.0-1.0); EOS # 0.1 10^3/uL (0.0-0.50); EOS % 0.7 % (0.0-3.0); HEMOGLOBIN 11.8 g/dl (13.5-17.5); IMMATURE GRANULOCYTE % 3.4 % (0-3.0); LYMPH # 1.3 10^3/uL (1.5-6.5); LYMPH % 6.8 % (24.0-44.0); MEAN CORPUSCULAR HEMOGLOBIN 34.4 pg (27.0-33.0); MEAN CORPUSCULAR HGB CONC 35.8 g/dl (32.0-36.5); MEAN CORPUSCULAR VOLUME 96.2 fl (80.0-96.0); MONO # 1.5 10^3/uL (0.0-0.8); NEUTROPHILS # 15.1 10^3/uL (1.8-7.7); NEUTROPHILS % 80.6 % (36.0-66.0); RED BLOOD COUNT 3.43 10^6/uL (4.30-6.10); RED CELL DISTRIBUTION WIDTH 13.1 % (11.5-14.5); WHITE BLOOD COUNT 18.7 10^3/uL (4.0-10.0)
[2017-09-15 05:06] LABS: PLATELET COUNT, AUTOMATED 69 10^3/uL (150-450)
[2017-09-15 05:24] LABS: ALBUMIN/GLOBULIN RATIO 0.67 (1.00-1.93); ALKALINE PHOSPHATASE 143 U/L (45-117); ALT/SGPT 182 U/L (12-78); ANION GAP 16 MEQ/L (8-16); AST/SGOT 183 U/L (7-37); BILIRUBIN,TOTAL 1.8 MG/DL (0.2-1.0); BLOOD UREA NITROGEN 89 MG/DL (7-18); CALCIUM LEVEL 8.7 MG/DL (8.5-10.1); CARBON DIOXIDE LEVEL 18 MEQ/L (21-32); CHLORIDE LEVEL 99 MEQ/L (98-107); CHOLESTEROL LEVEL 120 MG/DL (< 200); CPK CREATINE PHOSPHOKINASE 766 U/L (39-308); CREATININE FOR GFR 6.16 MG/DL (0.70-1.30); GLOMERULAR FILTRATION RATE 11.8 (>60); GLUCOSE, FASTING 81 MG/DL (70-100); LDH LACTATE DEHYDROGENASE 654 U/L (87-241); PHOSPHORUS LEVEL 3.4 MG/DL (2.5-4.9); POTASSIUM SERUM 4.1 MEQ/L (3.5-5.1); SODIUM LEVEL 133 MEQ/L (136-145); TRIGLYCERIDES LEVEL 283 MG/DL (<150); VANCOMYCIN RANDOM 15.4 UG/ML
[2017-09-15] MEDS: SODIUM CHLORIDE 0.9% INJ 10 ML SYR IV ×2 (06:00→18:00)
[2017-09-15] MEDS: IPRATROPIUM 0.5MG/ALBUTEROL 2.5MG INH SOL UD 3ML (DUONEB)(J7620) NEB ×3 (07:43→20:00)
[2017-09-15] MEDS: CYANOCOBALAMIN 250 MCG TABLET PO (09:00)
[2017-09-15] MEDS: FOLIC ACID 1 MG TAB PO (09:00)
[2017-09-15] MEDS: THIAMINE 100 MG TAB PO (09:00)
[2017-09-15] MEDS: MULTIVITAMINS/MINERALS THERAP 1 TAB PO (09:00)
[2017-09-15] MEDS: PANTOPRAZOLE 40MG INJ (PROTONIX) (C9113) IV (09:32)
[2017-09-15] MEDS: NYSTATIN 100,000 UNITS/GM TOPICAL PWD 15 GM TOP ×2 (09:33→21:00)
[2017-09-15] MEDS: **NOTE PATIENT COMMENT** MISC XX (16:00)
[2017-09-15] MEDS ORDERED: VANCOMYCIN 1000 MG/20 ML VIAL (J3370) As Ordered (18:09)
[2017-09-15] MEDS: METOPROLOL TART 12.5 MG PER 1/2 TAB PO (21:57)
[2017-09-15] MEDS ORDERED: LORazepam 2 MG TAB PO (22:00)
[2017-09-15] MEDS: CARVedilol 6.25 MG TAB PO (22:44)
[2017-09-16] MEDS: SODIUM CHLORIDE 0.9% INJ 10 ML SYR IV ×2 (05:08→17:27)
[2017-09-16 05:58] LABS: BASO # 0.1 10^3/uL (0.0-0.2); BASO % 0.4 % (0.0-1.0); EOS # 0.3 10^3/uL (0.0-0.50); EOS % 1.4 % (0.0-3.0); HEMATOCRIT 31.3 % (42.0-52.0); HEMOGLOBIN 11.2 g/dl (13.5-17.5); IMMATURE GRANULOCYTE % 4.5 % (0-3.0); LYMPH # 1.4 10^3/uL (1.5-6.5); LYMPH % 7.8 % (24.0-44.0); MEAN CORPUSCULAR HEMOGLOBIN 34.5 pg (27.0-33.0); MEAN CORPUSCULAR HGB CONC 35.8 g/dl (32.0-36.5); MEAN CORPUSCULAR VOLUME 96.3 fl (80.0-96.0); MONO # 1.3 10^3/uL (0.0-0.8); MONO % 7.1 % (0.0-5.0); NEUTROPHILS # 14.3 10^3/uL (1.8-7.7); NEUTROPHILS % 78.8 % (36.0-66.0); PLATELET COUNT, AUTOMATED 103 10^3/uL (150-450); RED BLOOD COUNT 3.25 10^6/uL (4.30-6.10); RED CELL DISTRIBUTION WIDTH 13.2 % (11.5-14.5); WHITE BLOOD COUNT 18.2 10^3/uL (4.0-10.0)
[2017-09-16 06:15] LABS: ANION GAP 17 MEQ/L (8-16); BLOOD UREA NITROGEN 111 MG/DL (7-18); CALCIUM LEVEL 8.2 MG/DL (8.5-10.1); CARBON DIOXIDE LEVEL 18 MEQ/L (21-32); CHLORIDE LEVEL 97 MEQ/L (98-107); CPK CREATINE PHOSPHOKINASE 559 U/L (39-308); GLOMERULAR FILTRATION RATE 8.5 (>60); GLUCOSE, FASTING 87 MG/DL (70-100); POTASSIUM SERUM 4.3 MEQ/L (3.5-5.1); SODIUM LEVEL 132 MEQ/L (136-145)
[2017-09-16 06:16] LABS: CREATININE FOR GFR 8.16 MG/DL (0.70-1.30); VANCOMYCIN LEVEL TROUGH 35.1 UG/ML (10.0-20.0)
[2017-09-16 06:23] LABS: ALBUMIN/GLOBULIN RATIO 0.65 (1.00-1.93); ALKALINE PHOSPHATASE 144 U/L (45-117); ALT/SGPT 133 U/L (12-78); AST/SGOT 127 U/L (7-37); BILIRUBIN,DIRECT 1.2 MG/DL (0.0-0.2); BILIRUBIN,TOTAL 1.6 MG/DL (0.2-1.0); TOTAL PROTEIN 5.1 GM/DL (6.4-8.2)
[2017-09-16] MEDS: IPRATROPIUM 0.5MG/ALBUTEROL 2.5MG INH SOL UD 3ML (DUONEB)(J7620) NEB ×4 (08:00→20:00)
[2017-09-16 09:02] LABS: ERYTHROCYTE SEDIMENTATION RATE 14 mm/hr (0-15)
[2017-09-16] MEDS: THIAMINE 100 MG TAB PO (09:19)
[2017-09-16] MEDS: CYANOCOBALAMIN 250 MCG TABLET PO (09:19)
[2017-09-16] MEDS: NYSTATIN 100,000 UNITS/GM TOPICAL PWD 15 GM TOP ×2 (09:20→20:45)
[2017-09-16] MEDS: CARVedilol 6.25 MG TAB PO ×2 (09:20→20:44)
[2017-09-16] MEDS: FOLIC ACID 1 MG TAB PO (09:20)
[2017-09-16] MEDS: PANTOPRAZOLE 40MG INJ (PROTONIX) (C9113) IV (09:20)
[2017-09-16] MEDS: MULTIVITAMINS/MINERALS THERAP 1 TAB PO (09:20)
[2017-09-16] MEDS ORDERED: LIDOCAINE 2% MDV 20 ML VIAL As Ordered (10:33)
[2017-09-16] MEDS ORDERED: HEPARIN 1,000 UNITS/ML 10ML VIAL (FOR RADIOLOGY& DIALYSIS ONLY) As Ordered (10:33)
[2017-09-16] MEDS ORDERED: ISOVUE-300 61% 50ML VIAL (Q9967) As Ordered (10:47)
[2017-09-16] MEDS: HEPARIN 1,000 UNITS/ML 10ML VIAL (FOR RADIOLOGY& DIALYSIS ONLY) XX (12:14)
[2017-09-16] MEDS: LORazepam 1 MG TAB PO (13:41)
[2017-09-16 14:39] LABS: VITAMIN B12 LEVEL 1356 PG/ML (247-911)
[2017-09-16 14:44] LABS: FOLATE 6.5 NG/ML (>5.4)
[2017-09-16] MEDS: **NOTE PATIENT COMMENT** MISC XX (17:25)
[2017-09-16] MEDS: VANCOMYCIN HCL 1,000 MG, VIAL MATE ADAPTER 1 EACH in D5W 250 ML IV (17:26)
[2017-09-17] MEDS: SODIUM CHLORIDE 0.9% INJ 10 ML SYR IV ×2 (06:06→18:06)
[2017-09-17] MEDS: IPRATROPIUM 0.5MG/ALBUTEROL 2.5MG INH SOL UD 3ML (DUONEB)(J7620) NEB ×4 (07:13→19:14)
[2017-09-17 07:50] LABS: BASO # 0.1 10^3/uL (0.0-0.2); BASO % 0.4 % (0.0-1.0); EOS # 0.2 10^3/uL (0.0-0.50); EOS % 1.3 % (0.0-3.0); HEMATOCRIT 35.2 % (42.0-52.0); HEMOGLOBIN 12.5 g/dl (13.5-17.5); IMMATURE GRANULOCYTE % 3.8 % (0-3.0); LYMPH # 1.5 10^3/uL (1.5-6.5); LYMPH % 8.2 % (24.0-44.0); MEAN CORPUSCULAR HEMOGLOBIN 34.4 pg (27.0-33.0); MEAN CORPUSCULAR HGB CONC 35.5 g/dl (32.0-36.5); MONO # 1.4 10^3/uL (0.0-0.8); MONO % 7.4 % (0.0-5.0); NEUTROPHILS # 14.6 10^3/uL (1.8-7.7); NEUTROPHILS % 78.9 % (36.0-66.0); PLATELET COUNT, AUTOMATED 198 10^3/uL (150-450); RED BLOOD COUNT 3.63 10^6/uL (4.30-6.10); RED CELL DISTRIBUTION WIDTH 13.3 % (11.5-14.5); WHITE BLOOD COUNT 18.6 10^3/uL (4.0-10.0)
[2017-09-17 08:16] LABS: ALBUMIN 2.3 GM/DL (3.2-5.2); ALBUMIN/GLOBULIN RATIO 0.72 (1.00-1.93); ALKALINE PHOSPHATASE 156 U/L (45-117); ALT/SGPT 108 U/L (12-78); ANION GAP 16 MEQ/L (8-16); AST/SGOT 104 U/L (7-37); BILIRUBIN,DIRECT 1.1 MG/DL (0.0-0.2); BILIRUBIN,TOTAL 1.6 MG/DL (0.2-1.0); BLOOD UREA NITROGEN 71 MG/DL (7-18); CALCIUM LEVEL 8.3 MG/DL (8.5-10.1); CARBON DIOXIDE LEVEL 21 MEQ/L (21-32); CHLORIDE LEVEL 97 MEQ/L (98-107); CREATININE FOR GFR 6.37 MG/DL (0.70-1.30); GLOMERULAR FILTRATION RATE 11.4 (>60); GLUCOSE, FASTING 84 MG/DL (70-100); POTASSIUM SERUM 4.2 MEQ/L (3.5-5.1); SODIUM LEVEL 134 MEQ/L (136-145); TOTAL PROTEIN 5.5 GM/DL (6.4-8.2); VANCOMYCIN RANDOM 37.7 UG/ML
[2017-09-17] MEDS: CARVedilol 6.25 MG TAB PO ×2 (09:54→20:46)
[2017-09-17] MEDS: PANTOPRAZOLE 40MG INJ (PROTONIX) (C9113) IV (09:54)
[2017-09-17] MEDS: FOLIC ACID 1 MG TAB PO (09:54)
[2017-09-17] MEDS: MULTIVITAMINS/MINERALS THERAP 1 TAB PO (09:54)
[2017-09-17] MEDS: THIAMINE 100 MG TAB PO (09:54)
[2017-09-17] MEDS: NICOTINE 14 MG/24 HR TRANSDERMAL TD (09:54)
[2017-09-17] MEDS: NYSTATIN 100,000 UNITS/GM TOPICAL PWD 15 GM TOP ×2 (09:55→20:36)
[2017-09-17] MEDS ORDERED: PROPOFOL 200 MG/20 ML VIAL As Ordered (11:50)
[2017-09-17] MEDS ORDERED: LIDOCAINE 2% INJ 100 MG/5 ML SDV (FOR ANES.) As Ordered (11:50)
[2017-09-17] MEDS ORDERED: MIDAZOLAM INJ 2 MG/2 ML VIAL (J2250) As Ordered (11:51)
[2017-09-17] MEDS ORDERED: fentaNYL 100 MCG/2 ML INJECTION (J3010) As Ordered (11:51)
[2017-09-17] MEDS: CETACAINE SPRAY 5GM As Ordered (12:29)
[2017-09-17] MEDS: LR 1,000 ML IV (13:15)
[2017-09-17] MEDS: NYSTATIN 500,000 U/5 ML SUSP UDC PO ×3 (14:37→20:35)
[2017-09-17] MEDS: LORazepam 1 MG TAB PO ×2 (18:05→22:58)
[2017-09-17] MEDS: cloNIDine 0.1 MG TAB PO (22:57)
[2017-09-18] MEDS: SODIUM CHLORIDE 0.9% INJ 10 ML SYR IV ×3 (06:00→20:07)
[2017-09-18 06:08] LABS: BASO # 0.1 10^3/uL (0.0-0.2); BASO % 0.4 % (0.0-1.0); EOS # 0.2 10^3/uL (0.0-0.50); EOS % 1.4 % (0.0-3.0); HEMATOCRIT 30.7 % (42.0-52.0); IMMATURE GRANULOCYTE % 1.8 % (0-3.0); LYMPH # 1.2 10^3/uL (1.5-6.5); LYMPH % 7.5 % (24.0-44.0); MEAN CORPUSCULAR HEMOGLOBIN 34.4 pg (27.0-33.0); MEAN CORPUSCULAR HGB CONC 35.8 g/dl (32.0-36.5); MEAN CORPUSCULAR VOLUME 95.9 fl (80.0-96.0); MONO # 1.5 10^3/uL (0.0-0.8); MONO % 9.1 % (0.0-5.0); NEUTROPHILS # 12.8 10^3/uL (1.8-7.7); NEUTROPHILS % 79.8 % (36.0-66.0); PLATELET COUNT, AUTOMATED 244 10^3/uL (150-450); RED CELL DISTRIBUTION WIDTH 12.9 % (11.5-14.5)
[2017-09-18 06:31] LABS: ANION GAP 15 MEQ/L (8-16); BLOOD UREA NITROGEN 93 MG/DL (7-18); CARBON DIOXIDE LEVEL 20 MEQ/L (21-32); CHLORIDE LEVEL 97 MEQ/L (98-107); GLUCOSE, FASTING 87 MG/DL (70-100); POTASSIUM SERUM 3.9 MEQ/L (3.5-5.1); SODIUM LEVEL 132 MEQ/L (136-145)
[2017-09-18 06:44] LABS: CREATININE FOR GFR 8.58 MG/DL (0.70-1.30)
[2017-09-18] MEDS: IPRATROPIUM 0.5MG/ALBUTEROL 2.5MG INH SOL UD 3ML (DUONEB)(J7620) NEB ×4 (07:03→20:12)
[2017-09-18] MEDS: CARVedilol 6.25 MG TAB PO ×2 (08:36→20:12)
[2017-09-18] MEDS: FOLIC ACID 1 MG TAB PO (08:36)
[2017-09-18] MEDS: cloNIDine 0.1 MG TAB PO ×2 (08:36→20:13)
[2017-09-18] MEDS: NICOTINE 14 MG/24 HR TRANSDERMAL TD (08:36)
[2017-09-18] MEDS: MULTIVITAMINS/MINERALS THERAP 1 TAB PO (08:36)
[2017-09-18] MEDS: THIAMINE 100 MG TAB PO (08:37)
[2017-09-18] MEDS: NYSTATIN 500,000 U/5 ML SUSP UDC PO ×4 (08:42→20:06)
[2017-09-18] MEDS: NYSTATIN 100,000 UNITS/GM TOPICAL PWD 15 GM TOP ×2 (09:00→20:07)
[2017-09-18] MEDS: HEPARIN 1,000 UNITS/ML 10ML VIAL (FOR RADIOLOGY& DIALYSIS ONLY) XX (12:00)
[2017-09-18] MEDS: ONDANSETRON 4MG/2ML VIAL (J2405) IV (20:07)
[2017-09-19] MEDS: SODIUM CHLORIDE 0.9% INJ 10 ML SYR IV ×2 (05:08→17:46)
[2017-09-19 06:26] LABS: BASO # 0.1 10^3/uL (0.0-0.2); BASO % 0.6 % (0.0-1.0); EOS # 0.1 10^3/uL (0.0-0.50); EOS % 0.9 % (0.0-3.0); HEMATOCRIT 29.6 % (42.0-52.0); HEMOGLOBIN 10.3 g/dl (13.5-17.5); IMMATURE GRANULOCYTE % 1.4 % (0-3.0); LYMPH # 1.6 10^3/uL (1.5-6.5); LYMPH % 10.3 % (24.0-44.0); MEAN CORPUSCULAR HGB CONC 34.8 g/dl (32.0-36.5); MEAN CORPUSCULAR VOLUME 97.7 fl (80.0-96.0); MONO # 1.7 10^3/uL (0.0-0.8); MONO % 10.9 % (0.0-5.0); NEUTROPHILS # 11.5 10^3/uL (1.8-7.7); NEUTROPHILS % 75.9 % (36.0-66.0); PLATELET COUNT, AUTOMATED 297 10^3/uL (150-450); RED BLOOD COUNT 3.03 10^6/uL (4.30-6.10); RED CELL DISTRIBUTION WIDTH 12.7 % (11.5-14.5); WHITE BLOOD COUNT 15.2 10^3/uL (4.0-10.0)
[2017-09-19 06:43] LABS: ANION GAP 11 MEQ/L (8-16); BLOOD UREA NITROGEN 52 MG/DL (7-18); CALCIUM LEVEL 7.8 MG/DL (8.5-10.1); CARBON DIOXIDE LEVEL 23 MEQ/L (21-32); CHLORIDE LEVEL 101 MEQ/L (98-107); CREATININE FOR GFR 6.84 MG/DL (0.70-1.30); GLOMERULAR FILTRATION RATE 10.5 (>60); GLUCOSE, FASTING 96 MG/DL (70-100); POTASSIUM SERUM 3.8 MEQ/L (3.5-5.1); SODIUM LEVEL 135 MEQ/L (136-145)
[2017-09-19] MEDS: IPRATROPIUM 0.5MG/ALBUTEROL 2.5MG INH SOL UD 3ML (DUONEB)(J7620) NEB ×4 (07:05→19:54)
[2017-09-19] MEDS: NYSTATIN 500,000 U/5 ML SUSP UDC PO ×4 (07:49→20:41)
[2017-09-19] MEDS: THIAMINE 100 MG TAB PO (07:50)
[2017-09-19] MEDS: MULTIVITAMINS/MINERALS THERAP 1 TAB PO (07:50)
[2017-09-19] MEDS: cloNIDine 0.1 MG TAB PO ×2 (07:50→20:41)
[2017-09-19] MEDS: CARVedilol 6.25 MG TAB PO ×2 (07:51→20:42)
[2017-09-19] MEDS: FOLIC ACID 1 MG TAB PO (07:51)
[2017-09-19] MEDS: NICOTINE 14 MG/24 HR TRANSDERMAL TD (07:51)
[2017-09-19] MEDS: NYSTATIN 100,000 UNITS/GM TOPICAL PWD 15 GM TOP ×2 (07:52→20:42)
[2017-09-19 10:48] LABS: ALBUMIN 2.1 GM/DL (3.2-5.2); ALBUMIN/GLOBULIN RATIO 0.64 (1.00-1.93); ALKALINE PHOSPHATASE 140 U/L (45-117); ALT/SGPT 68 U/L (12-78); AST/SGOT 78 U/L (7-37); BILIRUBIN,DIRECT 0.6 MG/DL (0.0-0.2); TOTAL PROTEIN 5.4 GM/DL (6.4-8.2)
[2017-09-19] MEDS: **NOTE PATIENT COMMENT** MISC XX (13:28)
[2017-09-20] MEDS: SODIUM CHLORIDE 0.9% INJ 10 ML SYR IV ×2 (05:33→18:00)
[2017-09-20 08:02] LABS: BASO # 0.1 10^3/uL (0.0-0.2); BASO % 0.4 % (0.0-1.0); EOS # 0.1 10^3/uL (0.0-0.50); EOS % 0.3 % (0.0-3.0); HEMATOCRIT 28.8 % (42.0-52.0); IMMATURE GRANULOCYTE % 1.1 % (0-3.0); LYMPH # 1.3 10^3/uL (1.5-6.5); LYMPH % 7.8 % (24.0-44.0); MEAN CORPUSCULAR HEMOGLOBIN 33.6 pg (27.0-33.0); MEAN CORPUSCULAR HGB CONC 34.7 g/dl (32.0-36.5); MEAN CORPUSCULAR VOLUME 96.6 fl (80.0-96.0); MONO # 1.5 10^3/uL (0.0-0.8); MONO % 9.2 % (0.0-5.0); NEUTROPHILS % 81.2 % (36.0-66.0); PLATELET COUNT, AUTOMATED 347 10^3/uL (150-450); RED BLOOD COUNT 2.98 10^6/uL (4.30-6.10); RED CELL DISTRIBUTION WIDTH 12.4 % (11.5-14.5)
[2017-09-20] MEDS: IPRATROPIUM 0.5MG/ALBUTEROL 2.5MG INH SOL UD 3ML (DUONEB)(J7620) NEB (08:03)
[2017-09-20 08:37] LABS: ANION GAP 16 MEQ/L (8-16); BLOOD UREA NITROGEN 62 MG/DL (7-18); CALCIUM LEVEL 7.7 MG/DL (8.5-10.1); CARBON DIOXIDE LEVEL 22 MEQ/L (21-32); CHLORIDE LEVEL 93 MEQ/L (98-107); GLOMERULAR FILTRATION RATE 7.3 (>60); GLUCOSE, FASTING 96 MG/DL (70-100); POTASSIUM SERUM 4.4 MEQ/L (3.5-5.1); SODIUM LEVEL 131 MEQ/L (136-145)
[2017-09-20 08:39] LABS: CREATININE FOR GFR 9.31 MG/DL (0.70-1.30)
[2017-09-20] MEDS: THIAMINE 100 MG TAB PO (09:01)
[2017-09-20] MEDS: cloNIDine 0.1 MG TAB PO ×2 (09:01→22:01)
[2017-09-20] MEDS: MULTIVITAMINS/MINERALS THERAP 1 TAB PO (09:02)
[2017-09-20] MEDS: FOLIC ACID 1 MG TAB PO (09:02)
[2017-09-20] MEDS: CARVedilol 6.25 MG TAB PO ×2 (09:02→22:00)
[2017-09-20] MEDS: NYSTATIN 500,000 U/5 ML SUSP UDC PO ×4 (09:04→21:54)
[2017-09-20] MEDS: NYSTATIN 100,000 UNITS/GM TOPICAL PWD 15 GM TOP ×2 (09:07→21:00)
[2017-09-20] MEDS: NICOTINE 14 MG/24 HR TRANSDERMAL TD (09:07)
[2017-09-20] MEDS: HEPARIN 1,000 UNITS/ML 10ML VIAL (FOR RADIOLOGY& DIALYSIS ONLY) XX (11:00)
[2017-09-20] MEDS: HEPARIN 1,000 UNITS/ML 10ML VIAL (FOR RADIOLOGY& DIALYSIS ONLY) IV (11:00)
[2017-09-20] MEDS: HEPARIN SOD (PORCINE) 5000 UNITS/ML VIAL SQ ×2 (14:04→21:55)
[2017-09-20] MEDS: **NOTE PATIENT COMMENT** MISC XX (18:12)
[2017-09-20] MEDS: VANCOMYCIN HCL 1,000 MG, VIAL MATE ADAPTER 1 EACH in D5W 250 ML IV (18:13)
[2017-09-21] MEDS: SODIUM CHLORIDE 0.9% INJ 10 ML SYR IV ×2 (05:42→17:18)
[2017-09-21] MEDS: HEPARIN SOD (PORCINE) 5000 UNITS/ML VIAL SQ ×3 (05:42→20:52)
[2017-09-21] MEDS: CARVedilol 6.25 MG TAB PO ×2 (06:35→20:51)
[2017-09-21] MEDS: cloNIDine 0.1 MG TAB PO ×3 (06:35→20:51)
[2017-09-21 06:39] LABS: BASO # 0.1 10^3/uL (0.0-0.2); BASO % 0.5 % (0.0-1.0); EOS # 0.1 10^3/uL (0.0-0.50); EOS % 0.6 % (0.0-3.0); HEMATOCRIT 29.1 % (42.0-52.0); IMMATURE GRANULOCYTE % 0.9 % (0-3.0); LYMPH # 1.5 10^3/uL (1.5-6.5); LYMPH % 11.6 % (24.0-44.0); MEAN CORPUSCULAR HEMOGLOBIN 33.6 pg (27.0-33.0); MEAN CORPUSCULAR HGB CONC 34.4 g/dl (32.0-36.5); MEAN CORPUSCULAR VOLUME 97.7 fl (80.0-96.0); MONO # 1.4 10^3/uL (0.0-0.8); MONO % 10.9 % (0.0-5.0); NEUTROPHILS # 9.4 10^3/uL (1.8-7.7); NEUTROPHILS % 75.5 % (36.0-66.0); PLATELET COUNT, AUTOMATED 396 10^3/uL (150-450); RED BLOOD COUNT 2.98 10^6/uL (4.30-6.10); RED CELL DISTRIBUTION WIDTH 12.4 % (11.5-14.5); WHITE BLOOD COUNT 12.5 10^3/uL (4.0-10.0)
[2017-09-21 06:51] LABS: C REACTIVE PROTEIN QUANTITATIV 5.36 MG/DL (0.00-0.30)
[2017-09-21 06:58] LABS: ANION GAP 8 MEQ/L (8-16); BLOOD UREA NITROGEN 32 MG/DL (7-18); CALCIUM LEVEL 7.8 MG/DL (8.5-10.1); CARBON DIOXIDE LEVEL 27 MEQ/L (21-32); CHLORIDE LEVEL 97 MEQ/L (98-107); CREATININE FOR GFR 6.15 MG/DL (0.70-1.30); GLOMERULAR FILTRATION RATE 11.8 (>60); GLUCOSE, FASTING 87 MG/DL (70-100); POTASSIUM SERUM 3.8 MEQ/L (3.5-5.1); SODIUM LEVEL 132 MEQ/L (136-145); VANCOMYCIN RANDOM 29.2 UG/ML
[2017-09-21] MEDS: NYSTATIN 500,000 U/5 ML SUSP UDC PO ×4 (07:48→20:51)
[2017-09-21] MEDS: FOLIC ACID 1 MG TAB PO (07:49)
[2017-09-21] MEDS: MULTIVITAMINS/MINERALS THERAP 1 TAB PO (07:49)
[2017-09-21] MEDS: NICOTINE 14 MG/24 HR TRANSDERMAL TD (07:49)
[2017-09-21] MEDS: THIAMINE 100 MG TAB PO (07:49)
[2017-09-21] MEDS: NYSTATIN 100,000 UNITS/GM TOPICAL PWD 15 GM TOP ×2 (07:50→20:52)
[2017-09-21] MEDS ORDERED: DARBEPOETIN 100 MCG/0.5 ML *DIALYSIS* SYRINGE (J0882) IV (10:15)
[2017-09-21] MEDS: **NOTE PATIENT COMMENT** MISC XX (16:00)
[2017-09-22] MEDS: HEPARIN SOD (PORCINE) 5000 UNITS/ML VIAL SQ ×3 (05:25→21:51)
[2017-09-22] MEDS: SODIUM CHLORIDE 0.9% INJ 10 ML SYR IV ×2 (05:26→17:20)
[2017-09-22 06:07] LABS: BASO # 0.1 10^3/uL (0.0-0.2); BASO % 0.7 % (0.0-1.0); EOS # 0.2 10^3/uL (0.0-0.50); EOS % 1.6 % (0.0-3.0); HEMATOCRIT 28.1 % (42.0-52.0); HEMOGLOBIN 9.7 g/dl (13.5-17.5); IMMATURE GRANULOCYTE % 0.7 % (0-3.0); LYMPH # 1.5 10^3/uL (1.5-6.5); LYMPH % 12.2 % (24.0-44.0); MEAN CORPUSCULAR HEMOGLOBIN 33.1 pg (27.0-33.0); MEAN CORPUSCULAR HGB CONC 34.5 g/dl (32.0-36.5); MEAN CORPUSCULAR VOLUME 95.9 fl (80.0-96.0); MONO # 1.2 10^3/uL (0.0-0.8); NEUTROPHILS # 9.1 10^3/uL (1.8-7.7); NEUTROPHILS % 74.8 % (36.0-66.0); PLATELET COUNT, AUTOMATED 421 10^3/uL (150-450); RED BLOOD COUNT 2.93 10^6/uL (4.30-6.10); RED CELL DISTRIBUTION WIDTH 12.2 % (11.5-14.5); WHITE BLOOD COUNT 12.2 10^3/uL (4.0-10.0)
[2017-09-22 06:17] LABS: ANION GAP 12 MEQ/L (8-16); BLOOD UREA NITROGEN 43 MG/DL (7-18); CALCIUM LEVEL 7.6 MG/DL (8.5-10.1); CARBON DIOXIDE LEVEL 24 MEQ/L (21-32); CHLORIDE LEVEL 97 MEQ/L (98-107); GLOMERULAR FILTRATION RATE 8.4 (>60); GLUCOSE, FASTING 88 MG/DL (70-100); SODIUM LEVEL 133 MEQ/L (136-145); VANCOMYCIN RANDOM 23.6 UG/ML
[2017-09-22 06:20] LABS: CREATININE FOR GFR 8.23 MG/DL (0.70-1.30)
[2017-09-22] MEDS: NYSTATIN 500,000 U/5 ML SUSP UDC PO ×4 (08:04→21:50)
[2017-09-22] MEDS: NICOTINE 14 MG/24 HR TRANSDERMAL TD (08:05)
[2017-09-22] MEDS: NYSTATIN 100,000 UNITS/GM TOPICAL PWD 15 GM TOP ×2 (09:00→21:00)
[2017-09-22] MEDS: HEPARIN 1,000 UNITS/ML 10ML VIAL (FOR RADIOLOGY& DIALYSIS ONLY) XX (12:30)
[2017-09-22] MEDS: HEPARIN 1,000 UNITS/ML 10ML VIAL (FOR RADIOLOGY& DIALYSIS ONLY) IV (12:30)
[2017-09-22] MEDS: CARVedilol 6.25 MG TAB PO ×2 (12:57→21:49)
[2017-09-22] MEDS: MULTIVITAMINS/MINERALS THERAP 1 TAB PO (12:57)
[2017-09-22] MEDS: FOLIC ACID 1 MG TAB PO (12:57)
[2017-09-22] MEDS: cloNIDine 0.1 MG TAB PO ×2 (12:57→21:49)
[2017-09-22] MEDS: THIAMINE 100 MG TAB PO (12:57)
[2017-09-22] MEDS: **NOTE PATIENT COMMENT** MISC XX (17:20)
[2017-09-22] MEDS: VANCOMYCIN HCL 500 MG in D5W MINI-BAG PLUS 100 ML IV (17:20)
[2017-09-23 06:12] LABS: HEMATOCRIT 29.2 % (42.0-52.0); MEAN CORPUSCULAR HEMOGLOBIN 33.3 pg (27.0-33.0); MEAN CORPUSCULAR HGB CONC 34.2 g/dl (32.0-36.5); MEAN CORPUSCULAR VOLUME 97.3 fl (80.0-96.0); PLATELET COUNT, AUTOMATED 422 10^3/uL (150-450); RED CELL DISTRIBUTION WIDTH 12.4 % (11.5-14.5); WHITE BLOOD COUNT 10.5 10^3/uL (4.0-10.0)
[2017-09-23] MEDS: SODIUM CHLORIDE 0.9% INJ 10 ML SYR IV (06:20)
[2017-09-23] MEDS: HEPARIN SOD (PORCINE) 5000 UNITS/ML VIAL SQ ×3 (06:20→21:36)
[2017-09-23] MEDS: NYSTATIN 100,000 UNITS/GM TOPICAL PWD 15 GM TOP ×2 (09:00→21:37)
[2017-09-23] MEDS: MULTIVITAMINS/MINERALS THERAP 1 TAB PO (09:34)
[2017-09-23] MEDS: FOLIC ACID 1 MG TAB PO (09:34)
[2017-09-23] MEDS: THIAMINE 100 MG TAB PO (09:34)
[2017-09-23] MEDS: NICOTINE 14 MG/24 HR TRANSDERMAL TD (09:34)
[2017-09-23] MEDS: NYSTATIN 500,000 U/5 ML SUSP UDC PO ×4 (09:34→21:36)
[2017-09-23] MEDS: CARVedilol 6.25 MG TAB PO ×2 (09:35→21:37)
[2017-09-23] MEDS: cloNIDine 0.1 MG TAB PO ×2 (09:35→21:36)
[2017-09-23 10:13] LABS: ANION GAP 8 MEQ/L (8-16); BLOOD UREA NITROGEN 19 MG/DL (7-18); CARBON DIOXIDE LEVEL 29 MEQ/L (21-32); CHLORIDE LEVEL 98 MEQ/L (98-107); CREATININE FOR GFR 6.08 MG/DL (0.70-1.30); GLUCOSE, FASTING 84 MG/DL (70-100); POTASSIUM SERUM 4.1 MEQ/L (3.5-5.1); SODIUM LEVEL 135 MEQ/L (136-145)
[2017-09-23] MEDS: **NOTE PATIENT COMMENT** MISC XX (12:44)
[2017-09-24] MEDS: HEPARIN SOD (PORCINE) 5000 UNITS/ML VIAL SQ ×3 (05:05→22:06)
[2017-09-24] MEDS: cloNIDine 0.1 MG TAB PO ×4 (05:20→22:05)
[2017-09-24] MEDS: CARVedilol 6.25 MG TAB PO (05:20)
[2017-09-24 07:19] LABS: VANCOMYCIN RANDOM 23.4 UG/ML
[2017-09-24 08:13] LABS: ALBUMIN 2.3 GM/DL (3.2-5.2); ALBUMIN/GLOBULIN RATIO 0.72 (1.00-1.93); ALKALINE PHOSPHATASE 110 U/L (45-117); ALT/SGPT 36 U/L (12-78); ANION GAP 13 MEQ/L (8-16); AST/SGOT 35 U/L (7-37); BILIRUBIN,TOTAL 0.6 MG/DL (0.2-1.0); BLOOD UREA NITROGEN 25 MG/DL (7-18); CALCIUM LEVEL 7.8 MG/DL (8.5-10.1); CARBON DIOXIDE LEVEL 24 MEQ/L (21-32); CHLORIDE LEVEL 95 MEQ/L (98-107); GLOMERULAR FILTRATION RATE 8.2 (>60); GLUCOSE, FASTING 92 MG/DL (70-100); MAGNESIUM LEVEL 1.9 MG/DL (1.8-2.4); POTASSIUM SERUM 3.7 MEQ/L (3.5-5.1); SODIUM LEVEL 132 MEQ/L (136-145); TOTAL PROTEIN 5.5 GM/DL (6.4-8.2)
[2017-09-24 08:22] LABS: CREATININE FOR GFR 8.45 MG/DL (0.70-1.30)
[2017-09-24] MEDS: NYSTATIN 100,000 UNITS/GM TOPICAL PWD 15 GM TOP ×2 (08:37→22:06)
[2017-09-24 08:48] LABS: BASO # 0.1 10^3/uL (0.0-0.2); BASO % 1.2 % (0.0-1.0); EOS % 0.1 % (0.0-3.0); HEMATOCRIT 30.1 % (42.0-52.0); HEMOGLOBIN 10.2 g/dl (13.5-17.5); LYMPH # 1.5 10^3/uL (1.5-6.5); LYMPH % 12.6 % (24.0-44.0); MEAN CORPUSCULAR HEMOGLOBIN 33.1 pg (27.0-33.0); MEAN CORPUSCULAR HGB CONC 33.9 g/dl (32.0-36.5); MEAN CORPUSCULAR VOLUME 97.7 fl (80.0-96.0); MONO # 1.2 10^3/uL (0.0-0.8); MONO % 10.2 % (0.0-5.0); NEUTROPHILS # 8.8 10^3/uL (1.8-7.7); NEUTROPHILS % 74.9 % (36.0-66.0); PLATELET COUNT, AUTOMATED 436 10^3/uL (150-450); RED BLOOD COUNT 3.08 10^6/uL (4.30-6.10); RED CELL DISTRIBUTION WIDTH 12.7 % (11.5-14.5); WHITE BLOOD COUNT 11.7 10^3/uL (4.0-10.0)
[2017-09-24] MEDS: MULTIVITAMINS/MINERALS THERAP 1 TAB PO (09:07)
[2017-09-24] MEDS: NYSTATIN 500,000 U/5 ML SUSP UDC PO (09:07)
[2017-09-24] MEDS: FOLIC ACID 1 MG TAB PO (09:07)
[2017-09-24] MEDS: THIAMINE 100 MG TAB PO (09:07)
[2017-09-24] MEDS: NICOTINE 14 MG/24 HR TRANSDERMAL TD (09:12)
[2017-09-24] MEDS: **NOTE PATIENT COMMENT** MISC XX (14:27)
[2017-09-24] MEDS: CARVedilol 12.5 MG TAB PO (22:05)
[2017-09-25 06:27] LABS: BASO # 0.1 10^3/uL (0.0-0.2); BASO % 0.8 % (0.0-1.0); EOS % 0.3 % (0.0-3.0); HEMOGLOBIN 9.8 g/dl (13.5-17.5); IMMATURE GRANULOCYTE % 0.7 % (0-3.0); LYMPH # 1.7 10^3/uL (1.5-6.5); MEAN CORPUSCULAR HEMOGLOBIN 32.9 pg (27.0-33.0); MEAN CORPUSCULAR HGB CONC 33.8 g/dl (32.0-36.5); MEAN CORPUSCULAR VOLUME 97.3 fl (80.0-96.0); MONO # 1.1 10^3/uL (0.0-0.8); NEUTROPHILS # 10.7 10^3/uL (1.8-7.7); NEUTROPHILS % 78.2 % (36.0-66.0); PLATELET COUNT, AUTOMATED 421 10^3/uL (150-450); RED BLOOD COUNT 2.98 10^6/uL (4.30-6.10); RED CELL DISTRIBUTION WIDTH 12.8 % (11.5-14.5); WHITE BLOOD COUNT 13.7 10^3/uL (4.0-10.0)
[2017-09-25 06:39] LABS: ALBUMIN 2.2 GM/DL (3.2-5.2); ALBUMIN/GLOBULIN RATIO 0.71 (1.00-1.93); ALKALINE PHOSPHATASE 103 U/L (45-117); ALT/SGPT 30 U/L (12-78); ANION GAP 9 MEQ/L (8-16); AST/SGOT 28 U/L (7-37); BILIRUBIN,TOTAL 0.6 MG/DL (0.2-1.0); BLOOD UREA NITROGEN 30 MG/DL (7-18); C REACTIVE PROTEIN QUANTITATIV 5.08 MG/DL (0.00-0.30); CALCIUM LEVEL 7.9 MG/DL (8.5-10.1); CARBON DIOXIDE LEVEL 26 MEQ/L (21-32); CHLORIDE LEVEL 96 MEQ/L (98-107); GLOMERULAR FILTRATION RATE 6.7 (>60); GLUCOSE, FASTING 89 MG/DL (70-100); MAGNESIUM LEVEL 1.8 MG/DL (1.8-2.4); POTASSIUM SERUM 3.5 MEQ/L (3.5-5.1); SODIUM LEVEL 131 MEQ/L (136-145); TOTAL PROTEIN 5.3 GM/DL (6.4-8.2)
[2017-09-25] MEDS: FOLIC ACID 1 MG TAB PO (06:51)
[2017-09-25] MEDS: THIAMINE 100 MG TAB PO (06:51)
[2017-09-25] MEDS: MULTIVITAMINS/MINERALS THERAP 1 TAB PO (06:51)
[2017-09-25] MEDS: CARVedilol 12.5 MG TAB PO ×2 (06:52→21:34)
[2017-09-25] MEDS: cloNIDine 0.1 MG TAB PO ×3 (06:52→21:33)
[2017-09-25] MEDS: NYSTATIN 100,000 UNITS/GM TOPICAL PWD 15 GM TOP ×2 (06:53→20:02)
[2017-09-25] MEDS: NICOTINE 14 MG/24 HR TRANSDERMAL TD (06:53)
[2017-09-25] MEDS: HEPARIN SOD (PORCINE) 5000 UNITS/ML VIAL SQ ×3 (06:53→21:34)
[2017-09-25 07:26] LABS: ERYTHROCYTE SEDIMENTATION RATE 41 mm/hr (0-15)
[2017-09-25] MEDS: HEPARIN 1,000 UNITS/ML 10ML VIAL (FOR RADIOLOGY& DIALYSIS ONLY) XX (12:45)
[2017-09-25] MEDS: HEPARIN 1,000 UNITS/ML 10ML VIAL (FOR RADIOLOGY& DIALYSIS ONLY) IV (12:45)
[2017-09-25] MEDS: POTASSIUM CHLORIDE 10 MEQ SR TABLET PO (13:09)
[2017-09-25] MEDS: **NOTE PATIENT COMMENT** MISC XX (14:09)
[2017-09-25] MEDS: VANCOMYCIN HCL 500 MG in D5W MINI-BAG PLUS 100 ML IV (15:00)
[2017-09-25] MEDS: RAMELTEON 8 MG TAB (ROZEREM) PO (23:14)
[2017-09-26] MEDS: HEPARIN SOD (PORCINE) 5000 UNITS/ML VIAL SQ ×3 (06:17→21:36)
[2017-09-26 06:21] LABS: BASO # 0.2 10^3/uL (0.0-0.2); BASO % 1.2 % (0.0-1.0); EOS # 0.1 10^3/uL (0.0-0.50); EOS % 0.7 % (0.0-3.0); HEMATOCRIT 28.3 % (42.0-52.0); HEMOGLOBIN 9.5 g/dl (13.5-17.5); IMMATURE GRANULOCYTE % 0.9 % (0-3.0); LYMPH # 1.7 10^3/uL (1.5-6.5); LYMPH % 14.4 % (24.0-44.0); MEAN CORPUSCULAR HGB CONC 33.6 g/dl (32.0-36.5); MEAN CORPUSCULAR VOLUME 98.3 fl (80.0-96.0); MONO # 1.1 10^3/uL (0.0-0.8); NEUTROPHILS # 8.9 10^3/uL (1.8-7.7); NEUTROPHILS % 73.8 % (36.0-66.0); PLATELET COUNT, AUTOMATED 364 10^3/uL (150-450); RED BLOOD COUNT 2.88 10^6/uL (4.30-6.10); WHITE BLOOD COUNT 12.1 10^3/uL (4.0-10.0)
[2017-09-26 06:38] LABS: ALBUMIN/GLOBULIN RATIO 0.67 (1.00-1.93); ALKALINE PHOSPHATASE 90 U/L (45-117); ALT/SGPT 27 U/L (12-78); ANION GAP 8 MEQ/L (8-16); AST/SGOT 29 U/L (7-37); BILIRUBIN,TOTAL 0.5 MG/DL (0.2-1.0); BLOOD UREA NITROGEN 15 MG/DL (7-18); CALCIUM LEVEL 7.6 MG/DL (8.5-10.1); CARBON DIOXIDE LEVEL 25 MEQ/L (21-32); CHLORIDE LEVEL 101 MEQ/L (98-107); CREATININE FOR GFR 6.53 MG/DL (0.70-1.30); FERRITIN 739 NG/ML (26-388); GLUCOSE, FASTING 86 MG/DL (70-100); IRON (FE) 26 UG/DL (65-175); MAGNESIUM LEVEL 1.8 MG/DL (1.8-2.4); PERCENT SATURATION 10.9 % (19.7-50.0); POTASSIUM SERUM 3.9 MEQ/L (3.5-5.1); SODIUM LEVEL 134 MEQ/L (136-145); TOTAL IRON BINDING CAPACITY 238 UG/DL (250-450)
[2017-09-26] MEDS: NYSTATIN 100,000 UNITS/GM TOPICAL PWD 15 GM TOP ×2 (08:04→21:35)
[2017-09-26] MEDS: NICOTINE 14 MG/24 HR TRANSDERMAL TD (08:05)
[2017-09-26] MEDS: cloNIDine 0.1 MG TAB PO ×3 (08:05→21:33)
[2017-09-26] MEDS: MULTIVITAMINS/MINERALS THERAP 1 TAB PO (08:05)
[2017-09-26] MEDS: FOLIC ACID 1 MG TAB PO (08:05)
[2017-09-26] MEDS: **NOTE PATIENT COMMENT** MISC XX (08:05)
[2017-09-26] MEDS: THIAMINE 100 MG TAB PO (08:05)
[2017-09-26] MEDS: CARVedilol 12.5 MG TAB PO ×2 (08:05→21:33)
[2017-09-26] MEDS: ACETAMINOPHEN TAB 650MG DOSE (2X325MG) PO ×2 (13:33→21:34)
[2017-09-26] MEDS: RAMELTEON 8 MG TAB (ROZEREM) PO (21:33)
[2017-09-26] MEDS: MORPHINE 10 MG/ML 1ML VIAL (J2270) IM (22:27)
[2017-09-27 06:30] LABS: BASO # 0.1 10^3/uL (0.0-0.2); BASO % 0.7 % (0.0-1.0); EOS # 0.1 10^3/uL (0.0-0.50); EOS % 0.4 % (0.0-3.0); HEMATOCRIT 30.7 % (42.0-52.0); HEMOGLOBIN 10.2 g/dl (13.5-17.5); IMMATURE GRANULOCYTE % 0.7 % (0-3.0); LYMPH # 1.3 10^3/uL (1.5-6.5); LYMPH % 8.6 % (24.0-44.0); MEAN CORPUSCULAR HEMOGLOBIN 32.3 pg (27.0-33.0); MEAN CORPUSCULAR HGB CONC 33.2 g/dl (32.0-36.5); MEAN CORPUSCULAR VOLUME 97.2 fl (80.0-96.0); MONO % 6.8 % (0.0-5.0); NEUTROPHILS # 12.1 10^3/uL (1.8-7.7); NEUTROPHILS % 82.8 % (36.0-66.0); PLATELET COUNT, AUTOMATED 374 10^3/uL (150-450); RED BLOOD COUNT 3.16 10^6/uL (4.30-6.10); RED CELL DISTRIBUTION WIDTH 13.1 % (11.5-14.5); WHITE BLOOD COUNT 14.6 10^3/uL (4.0-10.0)
[2017-09-27] MEDS: HEPARIN SOD (PORCINE) 5000 UNITS/ML VIAL SQ ×3 (06:41→21:44)
[2017-09-27] MEDS: ACETAMINOPHEN TAB 650MG DOSE (2X325MG) PO (06:42)
[2017-09-27 06:50] LABS: ALBUMIN 2.1 GM/DL (3.2-5.2); ALBUMIN/GLOBULIN RATIO 0.68 (1.00-1.93); ALKALINE PHOSPHATASE 99 U/L (45-117); ALT/SGPT 24 U/L (12-78); ANION GAP 9 MEQ/L (8-16); AST/SGOT 23 U/L (7-37); BILIRUBIN,TOTAL 0.6 MG/DL (0.2-1.0); BLOOD UREA NITROGEN 19 MG/DL (7-18); CALCIUM LEVEL 8.1 MG/DL (8.5-10.1); CARBON DIOXIDE LEVEL 24 MEQ/L (21-32); CHLORIDE LEVEL 102 MEQ/L (98-107); GLOMERULAR FILTRATION RATE 8.2 (>60); GLUCOSE, FASTING 90 MG/DL (70-100); MAGNESIUM LEVEL 1.9 MG/DL (1.8-2.4); POTASSIUM SERUM 3.8 MEQ/L (3.5-5.1); SODIUM LEVEL 135 MEQ/L (136-145); TOTAL PROTEIN 5.2 GM/DL (6.4-8.2)
[2017-09-27 06:53] LABS: CREATININE FOR GFR 8.45 MG/DL (0.70-1.30)
[2017-09-27] MEDS: NICOTINE 14 MG/24 HR TRANSDERMAL TD (08:07)
[2017-09-27] MEDS: THIAMINE 100 MG TAB PO (08:07)
[2017-09-27] MEDS: cloNIDine 0.1 MG TAB PO ×3 (08:07→21:44)
[2017-09-27] MEDS: FOLIC ACID 1 MG TAB PO (08:08)
[2017-09-27] MEDS: CARVedilol 12.5 MG TAB PO ×2 (08:08→21:45)
[2017-09-27] MEDS: MULTIVITAMINS/MINERALS THERAP 1 TAB PO (08:08)
[2017-09-27] MEDS ORDERED: IRON SUCROSE 100MG 5ML VIAL (J1756 PER 1MG) IV (09:00)
[2017-09-27] MEDS: NYSTATIN 100,000 UNITS/GM TOPICAL PWD 15 GM TOP ×2 (09:00→21:45)
[2017-09-27] MEDS ORDERED: ISOVUE-370 76% 100ML VIAL (Q9967) As Ordered (10:04)
[2017-09-27] MEDS: GASTROGRAFIN SOLUTION 30ML PO ×2 (10:44→11:38)
[2017-09-27] MEDS: HEPARIN 1,000 UNITS/ML 10ML VIAL (FOR RADIOLOGY& DIALYSIS ONLY) IV (12:15)
[2017-09-27] MEDS: HEPARIN 1,000 UNITS/ML 10ML VIAL (FOR RADIOLOGY& DIALYSIS ONLY) XX (12:15)
[2017-09-27] MEDS: **NOTE PATIENT COMMENT** MISC XX (16:00)
[2017-09-27] MEDS: VANCOMYCIN HCL 500 MG in D5W MINI-BAG PLUS 100 ML IV (17:42)
[2017-09-27 17:59] LABS: LIPASE 544 U/L (73-393)
[2017-09-27 18:54] LABS: KETONE, URINE AUTO RFX NEGATIVE (NEGATIVE); LEUKOCYTE ESTERASE UR AUTO RFX 2+ (NEGATIVE); MUCUS, URINE RFX SMALL (NEGATIVE); NITRITE, URINE AUTO RFX NEGATIVE (NEGATIVE); RBC, URINE AUTO RFX TNTC /HPF (0-3); SPECIFIC GRAVITY UR AUTO RFX 1.017 (1.002-1.035); SQUAM EPITHELIAL CELL UR AURFX 1 /HPF (0-6)
[2017-09-27 18:55] LABS: WBC, URINE AUTO RFX 78 /HPF (0-3)
[2017-09-27] MEDS: metroNIDAZOLE 500 MG in APPROPRIATE DILUENT 1 EA IV (19:59)
[2017-09-27] MEDS: RAMELTEON 8 MG TAB (ROZEREM) PO (21:44)
[2017-09-28] MEDS: metroNIDAZOLE 500 MG in APPROPRIATE DILUENT 1 EA IV ×3 (04:15→20:38)
[2017-09-28] MEDS: MULTIVITAMINS/MINERALS THERAP 1 TAB PO (06:29)
[2017-09-28] MEDS: FOLIC ACID 1 MG TAB PO (06:29)
[2017-09-28] MEDS: NICOTINE 14 MG/24 HR TRANSDERMAL TD (06:29)
[2017-09-28] MEDS: THIAMINE 100 MG TAB PO (06:29)
[2017-09-28] MEDS: HEPARIN SOD (PORCINE) 5000 UNITS/ML VIAL SQ ×3 (06:29→22:02)
[2017-09-28] MEDS: CARVedilol 12.5 MG TAB PO ×2 (06:30→22:04)
[2017-09-28] MEDS: cloNIDine 0.1 MG TAB PO ×3 (06:30→22:04)
[2017-09-28] MEDS: NYSTATIN 100,000 UNITS/GM TOPICAL PWD 15 GM TOP ×2 (06:31→21:00)
[2017-09-28 06:32] LABS: BASO # 0.1 10^3/uL (0.0-0.2); EOS # 0.1 10^3/uL (0.0-0.50); EOS % 0.5 % (0.0-3.0); HEMATOCRIT 30.5 % (42.0-52.0); HEMOGLOBIN 10.1 g/dl (13.5-17.5); IMMATURE GRANULOCYTE % 0.8 % (0-3.0); LYMPH # 1.6 10^3/uL (1.5-6.5); LYMPH % 12.6 % (24.0-44.0); MEAN CORPUSCULAR HEMOGLOBIN 32.5 pg (27.0-33.0); MEAN CORPUSCULAR HGB CONC 33.1 g/dl (32.0-36.5); MEAN CORPUSCULAR VOLUME 98.1 fl (80.0-96.0); MONO # 1.1 10^3/uL (0.0-0.8); MONO % 8.2 % (0.0-5.0); NEUTROPHILS # 9.9 10^3/uL (1.8-7.7); NEUTROPHILS % 76.9 % (36.0-66.0); PLATELET COUNT, AUTOMATED 334 10^3/uL (150-450); RED BLOOD COUNT 3.11 10^6/uL (4.30-6.10); WHITE BLOOD COUNT 12.8 10^3/uL (4.0-10.0)
[2017-09-28 06:48] LABS: ALBUMIN 2.1 GM/DL (3.2-5.2); ALBUMIN/GLOBULIN RATIO 0.66 (1.00-1.93); ALKALINE PHOSPHATASE 100 U/L (45-117); ALT/SGPT 20 U/L (12-78); ANION GAP 10 MEQ/L (8-16); AST/SGOT 22 U/L (7-37); BILIRUBIN,TOTAL 0.6 MG/DL (0.2-1.0); BLOOD UREA NITROGEN 10 MG/DL (7-18); CARBON DIOXIDE LEVEL 27 MEQ/L (21-32); CHLORIDE LEVEL 98 MEQ/L (98-107); CREATININE FOR GFR 6.11 MG/DL (0.70-1.30); GLOMERULAR FILTRATION RATE 11.9 (>60); GLUCOSE, FASTING 89 MG/DL (70-100); MAGNESIUM LEVEL 1.8 MG/DL (1.8-2.4); POTASSIUM SERUM 3.8 MEQ/L (3.5-5.1); SODIUM LEVEL 135 MEQ/L (136-145); TOTAL PROTEIN 5.3 GM/DL (6.4-8.2); VANCOMYCIN RANDOM 22.3 UG/ML
[2017-09-28] MEDS: **NOTE PATIENT COMMENT** MISC XX (16:49)
[2017-09-28 18:35] LABS: PHOSPHORUS LEVEL 4.9 MG/DL (2.5-4.9)
[2017-09-28 18:43] LABS: PTH INTACT 25.9 PG/ML (18.5-88.0)
[2017-09-28] MEDS: RAMELTEON 8 MG TAB (ROZEREM) PO (22:02)
[2017-09-29] MEDS: metroNIDAZOLE 500 MG in APPROPRIATE DILUENT 1 EA IV (04:02)
[2017-09-29] MEDS: HEPARIN SOD (PORCINE) 5000 UNITS/ML VIAL SQ (05:52)
[2017-09-29] MEDS: cloNIDine 0.1 MG TAB PO (05:52)
[2017-09-29] MEDS: CARVedilol 12.5 MG TAB PO (05:53)
[2017-09-29] MEDS ORDERED: cloNIDine 0.1 MG TAB PO (06:15)
[2017-09-29 06:41] LABS: BASO # 0.1 10^3/uL (0.0-0.2); BASO % 0.7 % (0.0-1.0); EOS % 0.3 % (0.0-3.0); HEMATOCRIT 29.3 % (42.0-52.0); HEMOGLOBIN 9.5 g/dl (13.5-17.5); IMMATURE GRANULOCYTE % 0.7 % (0-3.0); LYMPH # 1.2 10^3/uL (1.5-6.5); LYMPH % 9.8 % (24.0-44.0); MEAN CORPUSCULAR HEMOGLOBIN 31.5 pg (27.0-33.0); MEAN CORPUSCULAR HGB CONC 32.4 g/dl (32.0-36.5); MONO # 1.1 10^3/uL (0.0-0.8); MONO % 9.1 % (0.0-5.0); NEUTROPHILS # 9.6 10^3/uL (1.8-7.7); NEUTROPHILS % 79.4 % (36.0-66.0); PLATELET COUNT, AUTOMATED 302 10^3/uL (150-450); RED BLOOD COUNT 3.02 10^6/uL (4.30-6.10); RED CELL DISTRIBUTION WIDTH 12.8 % (11.5-14.5)
[2017-09-29 07:02] LABS: ALBUMIN/GLOBULIN RATIO 0.63 (1.00-1.93); ALKALINE PHOSPHATASE 101 U/L (45-117); ALT/SGPT 16 U/L (12-78); ANION GAP 11 MEQ/L (8-16); AST/SGOT 18 U/L (7-37); BILIRUBIN,TOTAL 0.5 MG/DL (0.2-1.0); BLOOD UREA NITROGEN 16 MG/DL (7-18); CALCIUM LEVEL 7.8 MG/DL (8.5-10.1); CARBON DIOXIDE LEVEL 25 MEQ/L (21-32); CHLORIDE LEVEL 101 MEQ/L (98-107); CREATININE FOR GFR 7.92 MG/DL (0.70-1.30); GLOMERULAR FILTRATION RATE 8.8 (>60); GLUCOSE, FASTING 93 MG/DL (70-100); MAGNESIUM LEVEL 1.8 MG/DL (1.8-2.4); POTASSIUM SERUM 3.8 MEQ/L (3.5-5.1); SODIUM LEVEL 137 MEQ/L (136-145); TOTAL PROTEIN 5.2 GM/DL (6.4-8.2)
[2017-09-29 07:40] LABS: PTH INTACT 31.3 PG/ML (18.5-88.0)
[2017-09-29] MEDS: MULTIVITAMINS/MINERALS THERAP 1 TAB PO (08:02)
[2017-09-29] MEDS: NICOTINE 14 MG/24 HR TRANSDERMAL TD (08:02)
[2017-09-29] MEDS: FOLIC ACID 1 MG TAB PO (08:03)
[2017-09-29] MEDS: NYSTATIN 100,000 UNITS/GM TOPICAL PWD 15 GM TOP (08:03)
[2017-09-29] MEDS: THIAMINE 100 MG TAB PO (08:03)
[2017-09-29] MEDS ORDERED: IMIPENEM/CILASTATIN 250 MG in D5W MINI-BAG PLUS 100 ML IV (08:15)
[2017-09-29] MEDS ORDERED: CIPROFLOXACIN 250 MG TAB PO ×2 (08:15→18:00)
[2017-09-29] MEDS ORDERED: CIPROFLOXACIN 500 MG TAB PO (08:30)
[2017-09-29] MEDS: CIPROFLOXACIN 500 MG TAB PO (08:48)
== END 2017-09-29 12:11 | disposition home or self-care (01) | DRG 950 ==
LOC: M ICU 09-09 09:01 → M MSPAV 09-15 17:14 → M ED 06:57 → M ED INP 10:23 → M ICU 13:42
PROC: 05H533Z Insertion of Infusion Device into Right Subclavian Vein, Percutaneous Approach (ICD-10-PCS; principal; 2017-09-17 12:19)
PROC: 0B9M8ZZ Drainage of Bilateral Lungs, Via Natural or Artificial Opening Endoscopic (ICD-10-PCS; 2017-09-17 12:19)
PROC: 5A1955Z Respiratory Ventilation, Greater than 96 Consecutive Hours (ICD-10-PCS; 2017-09-17 12:19)
PROC: 05PYX3Z Removal of Infusion Device from Upper Vein, External Approach (ICD-10-PCS; 2017-09-17 12:19)
PROC: 02PY33Z Removal of Infusion Device from Great Vessel, Percutaneous Approach (ICD-10-PCS; 2017-09-17 12:19)
PROC: 02HV33Z Insertion of Infusion Device into Superior Vena Cava, Percutaneous Approach (ICD-10-PCS; 2017-09-17 12:19)
PROC: 05H533Z Insertion of Infusion Device into Right Subclavian Vein, Percutaneous Approach (ICD-10-PCS; 2017-09-17 12:19)
PROC: B246ZZ4 Ultrasonography of Right and Left Heart, Transesophageal (ICD-10-PCS; 2017-09-17 12:19)
PROC: 0JH63XZ Insertion of Tunneled Vascular Access Device into Chest Subcutaneous Tissue and Fascia, Percutaneous Approach (ICD-10-PCS; 2017-09-17 12:19)
DX: F10.232 Alcohol dependence with withdrawal with perceptual disturbance (principal); J96.01 Acute respiratory failure with hypoxia; K72.00 Acute and subacute hepatic failure without coma; J69.0 Pneumonitis due to inhalation of food and vomit; G93.41 Metabolic encephalopathy; J15.212 Pneumonia due to Methicillin resistant Staphylococcus aureus; E72.20 Disorder of urea cycle metabolism, unspecified; N17.9 Acute kidney failure, unspecified; R78.81 Bacteremia; G40.89 Other seizures; M62.82 Rhabdomyolysis; D69.6 Thrombocytopenia, unspecified; E87.2 Acidosis; I47.1 Supraventricular tachycardia; E87.1 Hypo-osmolality and hyponatremia; N20.1 Calculus of ureter; E83.51 Hypocalcemia; E83.39 Other disorders of phosphorus metabolism; K70.10 Alcoholic hepatitis without ascites; I10 Essential (primary) hypertension; F17.200 Nicotine dependence, unspecified, uncomplicated; E16.2 Hypoglycemia, unspecified; D50.9 Iron deficiency anemia, unspecified; I34.0 Nonrheumatic mitral (valve) insufficiency; T82.7XXA Infection and inflammatory reaction due to other cardiac and vascular devices, implants and grafts, initial encounter; I16.0 Hypertensive urgency

== ENCOUNTER → 2017-10-03 | Outpatient (CLI) | payer OTHER | LOC: M WUC 13:57 | DX: R78.81 Bacteremia (principal); B95.62 Methicillin resistant Staphylococcus aureus infection as the cause of diseases classified elsewhere | CPT/HCPCS: 36415 ==

== ENCOUNTER 2017-10-05 09:10 | Outpatient (RCR) | payer OTHER | END 2017-10-16 | LOC: M ST 09:10 | DX: R41.82 Altered mental status, unspecified (principal); F10.239 Alcohol dependence with withdrawal, unspecified; R56.9 Unspecified convulsions | CPT/HCPCS: 96125 ==

== ENCOUNTER 2017-10-21 17:13 | Outpatient (RCR) | payer OTHER | END 2017-11-16 | LOC: M ST 17:13 | DX: Z51.89 Encounter for other specified aftercare (principal); F10.239 Alcohol dependence with withdrawal, unspecified; R56.9 Unspecified convulsions ==

== ENCOUNTER → 2017-11-01 | Outpatient (CLI) | payer OTHER | END | disposition home or self-care (01) | LOC: M IRPRO 09:04 | DX: Z45.2 Encounter for adjustment and management of vascular access device (principal) | CPT/HCPCS: 36589 ==

== ENCOUNTER 2017-11-06 01:44 | Emergency (ER) | payer OTHER ==
[2017-11-06] MEDS: NS 1,000 ML IV (02:49)
[2017-11-06] MEDS: ONDANSETRON 4MG/2ML VIAL (J2405) IV (02:49)
[2017-11-06 03:03] LABS: BASO % 0.4 % (0.0-1.0); EOS # 0.1 10^3/uL (0.0-0.50); EOS % 0.5 % (0.0-3.0); HEMATOCRIT 40.4 % (42.0-52.0); HEMOGLOBIN 13.8 g/dl (13.5-17.5); IMMATURE GRANULOCYTE % 0.4 % (0-3.0); LYMPH # 1.7 10^3/uL (1.5-6.5); LYMPH % 17.2 % (24.0-44.0); MEAN CORPUSCULAR HEMOGLOBIN 30.6 pg (27.0-33.0); MEAN CORPUSCULAR HGB CONC 34.2 g/dl (32.0-36.5); MEAN CORPUSCULAR VOLUME 89.6 fl (80.0-96.0); MONO # 0.5 10^3/uL (0.0-0.8); MONO % 4.9 % (0.0-5.0); NEUTROPHILS # 7.8 10^3/uL (1.8-7.7); NEUTROPHILS % 76.6 % (36.0-66.0); PLATELET COUNT, AUTOMATED 303 10^3/uL (150-450); RED BLOOD COUNT 4.51 10^6/uL (4.30-6.10); RED CELL DISTRIBUTION WIDTH 14.4 % (11.5-14.5); WHITE BLOOD COUNT 10.1 10^3/uL (4.0-10.0)
[2017-11-06 03:20] LABS: AMMONIA 33 uMOL/L (<32)
[2017-11-06 03:20] LABS: ANION GAP 11 MEQ/L (8-16); BLOOD UREA NITROGEN 6 MG/DL (7-18); CALCIUM LEVEL 8.7 MG/DL (8.5-10.1); CARBON DIOXIDE LEVEL 26 MEQ/L (21-32); CHLORIDE LEVEL 108 MEQ/L (98-107); CREATININE FOR GFR 0.94 MG/DL (0.70-1.30); GLOMERULAR FILTRATION RATE > 60.0 (>60); GLUCOSE, FASTING 107 MG/DL (70-100); POTASSIUM SERUM 3.7 MEQ/L (3.5-5.1); SODIUM LEVEL 145 MEQ/L (136-145)
[2017-11-06 03:25] LABS: LACTIC ACID SEPSIS PROTOCOL 4.5 MMOL/L (0.4-2.0)
[2017-11-06 03:25] LABS: CK-MB VALUE MASS 1.7 NG/ML (<3.6); CPK CREATINE PHOSPHOKINASE 46 U/L (39-308); MB/CK RELATIVE INDEX 3.69 (< OR =4)
[2017-11-06] MEDS: NS 2,320 ML in APPROPRIATE DILUENT 1 EA IV (05:45)
[2017-11-06 06:41] LABS: APPEARANCE, URINE HAZY (CLEAR); BACTERIA, URINE AUTO 1+ (NEGATIVE); BILIRUBIN, URINE AUTO NEGATIVE (NEGATIVE); BLOOD, URINE BLOOD 2+ (NEGATIVE); CALCIUM OXALATE CRYSTALS SMALL; COLOR, URINE YELLOW (YELLOW); GLUCOSE, URINE (UA) AUTO 1+ mg/dL (NEGATIVE); KETONE, URINE AUTO NEGATIVE (NEGATIVE); LEUKOCYTE ESTERASE, URINE AUTO 1+ (NEGATIVE); MUCUS, URINE MODERATE (NEGATIVE); NITRITE, URINE AUTO NEGATIVE (NEGATIVE); PROTEIN, URINE AUTO NEGATIVE (NEGATIVE); RBC, URINE AUTO 58 /HPF (0-3); SPECIFIC GRAVITY URINE AUTO 1.015 (1.002-1.035); SQUAMOUS EPITHELIAL CELL UR AU 0 /HPF (0-6); WBC, URINE AUTO 9 /HPF (0-3)
[2017-11-06 06:51] LABS: AMPHETAMINES LEVEL URINE NEGATIVE (NEGATIVE); BARBITURATES URINE NEGATIVE (NEGATIVE); BENZODIAZEPINES URINE NEGATIVE (NEGATIVE); CANNABINOIDS URINE POSITIVE (NEGATIVE); COCAINE METABOLITE URINE NEGATIVE (NEGATIVE); METHADONE URINE NEGATIVE (NEGATIVE); OPIATES URINE NEGATIVE (NEGATIVE); PHENCYCLIDINE URINE NEGATIVE (NEGATIVE)
[2017-11-06] MEDS: METOCLOPRAMIDE INJ 10MG/2ML VIAL (J2765) IV (07:03)
[2017-11-06 07:06] LABS: LACTIC ACID SEPSIS PROTOCOL 3.3 MMOL/L (0.4-2.0)
[2017-11-06 10:09] LABS: ALBUMIN 3.5 GM/DL (3.2-5.2); ALBUMIN/GLOBULIN RATIO 1.09 (1.00-1.93); ALKALINE PHOSPHATASE 147 U/L (45-117); ALT/SGPT 24 U/L (12-78); AST/SGOT 21 U/L (7-37); BILIRUBIN,DIRECT 0.2 MG/DL (0.0-0.2); BILIRUBIN,TOTAL 0.3 MG/DL (0.2-1.0); LIPASE 122 U/L (73-393); TOTAL PROTEIN 6.7 GM/DL (6.4-8.2)
== END 2017-11-06 10:11 | disposition home or self-care (01) ==
LOC: M ED 01:44
DX: R11.2 Nausea with vomiting, unspecified (principal); N20.1 Calculus of ureter; F12.10 Cannabis abuse, uncomplicated; F10.10 Alcohol abuse, uncomplicated; K86.3 Pseudocyst of pancreas; R94.31 Abnormal electrocardiogram [ECG] [EKG]; N17.9 Acute kidney failure, unspecified; Z79.899 Other long term (current) drug therapy
CPT/HCPCS: J2405

== ENCOUNTER → 2017-11-09 | Outpatient (REF) | payer OTHER | LOC: M SFHCPLAZ 15:52 | DX: R89.9 Unspecified abnormal finding in specimens from other organs, systems and tissues (principal) ==

== ENCOUNTER → 2017-11-11 | Outpatient (CLI) | payer OTHER ==
[2017-11-11 16:28] LABS: BASO % 0.4 % (0.0-1.0); EOS # 0.1 10^3/uL (0.0-0.50); EOS % 1.7 % (0.0-3.0); HEMATOCRIT 38.6 % (42.0-52.0); IMMATURE GRANULOCYTE % 0.4 % (0-3.0); MEAN CORPUSCULAR HEMOGLOBIN 31.1 pg (27.0-33.0); MEAN CORPUSCULAR HGB CONC 33.7 g/dl (32.0-36.5); MEAN CORPUSCULAR VOLUME 92.3 fl (80.0-96.0); MONO # 0.6 10^3/uL (0.0-0.8); MONO % 7.1 % (0.0-5.0); NEUTROPHILS # 5.4 10^3/uL (1.8-7.7); NEUTROPHILS % 66.4 % (36.0-66.0); PLATELET COUNT, AUTOMATED 255 10^3/uL (150-450); RED BLOOD COUNT 4.18 10^6/uL (4.30-6.10); RED CELL DISTRIBUTION WIDTH 16.7 % (11.5-14.5); WHITE BLOOD COUNT 8.2 10^3/uL (4.0-10.0)
[2017-11-11 17:16] LABS: ALBUMIN 3.3 GM/DL (3.2-5.2); ALBUMIN/GLOBULIN RATIO 1.14 (1.00-1.93); ALKALINE PHOSPHATASE 144 U/L (45-117); ALT/SGPT 17 U/L (12-78); ANION GAP 10 MEQ/L (8-16); AST/SGOT 10 U/L (7-37); BILIRUBIN,TOTAL 0.3 MG/DL (0.2-1.0); BLOOD UREA NITROGEN 7 MG/DL (7-18); CALCIUM LEVEL 8.5 MG/DL (8.5-10.1); CARBON DIOXIDE LEVEL 27 MEQ/L (21-32); CHLORIDE LEVEL 106 MEQ/L (98-107); CREATININE FOR GFR 0.91 MG/DL (0.70-1.30); GAMMA GLUTAMYLTRANSPEPTIDASE 71 U/L (15-85); GLOMERULAR FILTRATION RATE > 60.0 (>60); GLUCOSE, FASTING 83 MG/DL (70-100); POTASSIUM SERUM 3.9 MEQ/L (3.5-5.1); SODIUM LEVEL 143 MEQ/L (136-145); TOTAL PROTEIN 6.2 GM/DL (6.4-8.2)
== END ==
LOC: M WUC 14:18
DX: R89.8 Other abnormal findings in specimens from other organs, systems and tissues (principal)
CPT/HCPCS: 82977

== ENCOUNTER → 2017-11-15 | Outpatient (REF) | payer OTHER ==
[2017-11-15 19:59] LABS: APPEARANCE, URINE CLEAR (CLEAR); BACTERIA, URINE AUTO NEGATIVE (NEGATIVE); BILIRUBIN, URINE AUTO NEGATIVE (NEGATIVE); BLOOD, URINE BLOOD NEGATIVE (NEGATIVE); COLOR, URINE YELLOW (YELLOW); GLUCOSE, URINE (UA) AUTO NEGATIVE (NEGATIVE); KETONE, URINE AUTO NEGATIVE (NEGATIVE); LEUKOCYTE ESTERASE, URINE AUTO NEGATIVE (NEGATIVE); MUCUS, URINE SMALL (NEGATIVE); NITRITE, URINE AUTO NEGATIVE (NEGATIVE); PROTEIN, URINE AUTO NEGATIVE (NEGATIVE); RBC, URINE AUTO 1 /HPF (0-3); SPECIFIC GRAVITY URINE AUTO 1.012 (1.002-1.035); SQUAMOUS EPITHELIAL CELL UR AU 0 /HPF (0-6); UROBILINOGEN, URINE AUTO 0.2 mg/dL (0.0-2.0); WBC, URINE AUTO 2 /HPF (0-3)
== END ==
LOC: M SMT 17:00
DX: R31.29 Other microscopic hematuria (principal)

== ENCOUNTER 2017-11-20 05:42 | Inpatient (IN) | payer OTHER ==
[2017-11-20 06:46] LABS: BASO % 0.2 % (0.0-1.0); HEMATOCRIT 43.7 % (42.0-52.0); HEMOGLOBIN 14.7 g/dl (13.5-17.5); IMMATURE GRANULOCYTE % 0.6 % (0-3.0); LYMPH % 1.2 % (24.0-44.0); MEAN CORPUSCULAR HEMOGLOBIN 30.8 pg (27.0-33.0); MEAN CORPUSCULAR HGB CONC 33.6 g/dl (32.0-36.5); MEAN CORPUSCULAR VOLUME 91.6 fl (80.0-96.0); MONO # 0.9 10^3/uL (0.0-0.8); MONO % 4.5 % (0.0-5.0); NEUTROPHILS # 18.2 10^3/uL (1.8-7.7); NEUTROPHILS % 93.5 % (36.0-66.0); PLATELET COUNT, AUTOMATED 240 10^3/uL (150-450); RED BLOOD COUNT 4.77 10^6/uL (4.30-6.10); RED CELL DISTRIBUTION WIDTH 15.8 % (11.5-14.5); WHITE BLOOD COUNT 19.5 10^3/uL (4.0-10.0)
[2017-11-20 06:50] LABS: LYMPH # 0.2 10^3/uL (1.5-6.5); POSITIVE DIFF POS FLAG
[2017-11-20] MEDS: PHENobarbital INJ 65 MG/ML VIAL (J2560) IV (06:53)
[2017-11-20 06:58] LABS: LACTIC ACID SEPSIS PROTOCOL 2.1 MMOL/L (0.4-2.0)
[2017-11-20 07:04] LABS: ALBUMIN 3.6 GM/DL (3.2-5.2); ALKALINE PHOSPHATASE 181 U/L (45-117); ALT/SGPT 19 U/L (12-78); ANION GAP 12 MEQ/L (8-16); AST/SGOT 21 U/L (7-37); BILIRUBIN,DIRECT 0.3 MG/DL (0.0-0.2); BILIRUBIN,TOTAL 0.9 MG/DL (0.2-1.0); BLOOD UREA NITROGEN 7 MG/DL (7-18); CARBON DIOXIDE LEVEL 25 MEQ/L (21-32); CHLORIDE LEVEL 107 MEQ/L (98-107); CREATININE FOR GFR 0.93 MG/DL (0.70-1.30); ETHYL ALCOHOL (ETHANOL) < 0.003 % (0.000-0.010); GLOMERULAR FILTRATION RATE > 60.0 (>60); GLUCOSE, FASTING 109 MG/DL (70-100); MAGNESIUM LEVEL 2.1 MG/DL (1.8-2.4); SODIUM LEVEL 144 MEQ/L (136-145); THYROID STIMULATING HORMONE 0.695 uIU/ML (0.358-3.740); TOTAL PROTEIN 6.6 GM/DL (6.4-8.2)
[2017-11-20 07:45] LABS: CK-MB VALUE MASS 2.8 NG/ML (<3.6); CPK CREATINE PHOSPHOKINASE 151 U/L (39-308); MB/CK RELATIVE INDEX 1.85 (< OR =4); TROPONIN I < 0.02 NG/ML (< 0.10)
[2017-11-20] MEDS: ONDANSETRON 4MG/2ML VIAL (J2405) IV (08:15)
[2017-11-20 08:34] LABS: KETONE, URINE AUTO RFX 1+ mg/dL (NEGATIVE); LEUKOCYTE ESTERASE UR AUTO RFX NEGATIVE (NEGATIVE); MUCUS, URINE RFX SMALL (NEGATIVE); NITRITE, URINE AUTO RFX NEGATIVE (NEGATIVE); RBC, URINE AUTO RFX 62 /HPF (0-3); SPECIFIC GRAVITY UR AUTO RFX 1.014 (1.002-1.035); SQUAM EPITHELIAL CELL UR AURFX 0 /HPF (0-6); WBC, URINE AUTO RFX 3 /HPF (0-3)
[2017-11-20] MEDS ORDERED: ACETAMINOPHEN 325 MG TAB PO (08:45)
[2017-11-20] MEDS: MULTIVITAMIN -ADULT INJECTION 10 ML, THIAMINE INJection 100 MG, FOLIC ACID 1 MG in NS 1... IV (08:55)
[2017-11-20] MEDS: LORazepam 2 MG/ML VIAL (J2060) IV ×3 (08:58→10:54)
[2017-11-20] MEDS: ACETAMINOPHEN 650 MG SUPP PR (09:28)
[2017-11-20 09:35] LABS: AMPHETAMINES LEVEL URINE NEGATIVE (NEGATIVE); BARBITURATES URINE POSITIVE (NEGATIVE); BENZODIAZEPINES URINE NEGATIVE (NEGATIVE); CANNABINOIDS URINE POSITIVE (NEGATIVE); COCAINE METABOLITE URINE NEGATIVE (NEGATIVE); METHADONE URINE NEGATIVE (NEGATIVE); OPIATES URINE NEGATIVE (NEGATIVE); PHENCYCLIDINE URINE NEGATIVE (NEGATIVE)
[2017-11-20] MEDS: PIPERACILLIN/TAZOBACTAM SOD 4.5 GM in D5W MINI-BAG PLUS 50 ML IV (09:45)
[2017-11-20] MEDS: MIDAZOLAM INJ 2 MG/2 ML VIAL (J2250) IV (11:57)
[2017-11-20] MEDS: VANCOMYCIN HCL 1,000 MG, VIAL MATE ADAPTER 1 EACH in D5W 250 ML IV (12:40)
[2017-11-20 15:28] LABS: C REACTIVE PROTEIN QUANTITATIV < 0.30 MG/DL (0.00-0.30)
[2017-11-20 15:39] LABS: ERYTHROCYTE SEDIMENTATION RATE 1 mm/hr (0-15)
[2017-11-20 17:03] LABS: INR 1.08; PARTIAL THROMBOPLASTIN TIME 27.8 SECONDS (25.4-37.6); PROTHROMBIN TIME 14.1 SECONDS (12.1-14.4)
[2017-11-20] MEDS ORDERED: LORazepam 2 MG/ML VIAL (J2060) IV (17:30)
[2017-11-21] MEDS: cloNIDine 0.1 MG TAB PO ×2 (00:03→20:50)
[2017-11-21] MEDS ORDERED: MULTIVITAMIN -ADULT INJECTION 10 ML, THIAMINE INJection 100 MG, FOLIC ACID 1 MG in NS 1... IV (07:45)
[2017-11-21] MEDS: THIAMINE 100 MG TAB PO (08:26)
[2017-11-21 09:27] LABS: HEMATOCRIT 40.2 % (42.0-52.0); HEMOGLOBIN 13.5 g/dl (13.5-17.5); MEAN CORPUSCULAR HEMOGLOBIN 30.8 pg (27.0-33.0); MEAN CORPUSCULAR HGB CONC 33.6 g/dl (32.0-36.5); MEAN CORPUSCULAR VOLUME 91.8 fl (80.0-96.0); PLATELET COUNT, AUTOMATED 173 10^3/uL (150-450); RED BLOOD COUNT 4.38 10^6/uL (4.30-6.10); RED CELL DISTRIBUTION WIDTH 15.8 % (11.5-14.5); WHITE BLOOD COUNT 12.7 10^3/uL (4.0-10.0)
[2017-11-21] MEDS: FOLIC ACID 1 MG TAB PO (09:47)
[2017-11-21] MEDS: levETIRAcetam 250MG TABLET (KEPPRA) PO ×2 (09:47→20:49)
[2017-11-21] MEDS: HEPARIN SOD (PORCINE) 5000 UNITS/ML VIAL SQ ×2 (09:48→20:49)
[2017-11-21 09:53] LABS: ANION GAP 13 MEQ/L (8-16); BLOOD UREA NITROGEN 5 MG/DL (7-18); CALCIUM LEVEL 8.3 MG/DL (8.5-10.1); CARBON DIOXIDE LEVEL 22 MEQ/L (21-32); CHLORIDE LEVEL 103 MEQ/L (98-107); CREATININE FOR GFR 0.85 MG/DL (0.70-1.30); GLOMERULAR FILTRATION RATE > 60.0 (>60); GLUCOSE, FASTING 68 MG/DL (70-100); POTASSIUM SERUM 3.9 MEQ/L (3.5-5.1); SODIUM LEVEL 138 MEQ/L (136-145)
[2017-11-21] MEDS: PIPERACILLIN/TAZOBACTAM SOD 3.375 GM in D5W MINI-BAG PLUS 50 ML IV ×2 (11:14→18:09)
[2017-11-21] MEDS: VANCOMYCIN HCL 1,000 MG, VIAL MATE ADAPTER 1 EACH in D5W 250 ML IV (12:18)
[2017-11-21] MEDS: VANCOMYCIN HCL 500 MG in D5W MINI-BAG PLUS 100 ML IV (12:18)
[2017-11-22] MEDS: VANCOMYCIN HCL 1,000 MG, VIAL MATE ADAPTER 1 EACH in D5W 250 ML IV ×3 (00:10→23:38)
[2017-11-22] MEDS: PIPERACILLIN/TAZOBACTAM SOD 3.375 GM in D5W MINI-BAG PLUS 50 ML IV ×3 (03:00→18:03)
[2017-11-22 05:28] LABS: HEMATOCRIT 39.8 % (42.0-52.0); HEMOGLOBIN 13.6 g/dl (13.5-17.5); MEAN CORPUSCULAR HEMOGLOBIN 30.8 pg (27.0-33.0); MEAN CORPUSCULAR HGB CONC 34.2 g/dl (32.0-36.5); MEAN CORPUSCULAR VOLUME 90.2 fl (80.0-96.0); PLATELET COUNT, AUTOMATED 176 10^3/uL (150-450); RED BLOOD COUNT 4.41 10^6/uL (4.30-6.10); RED CELL DISTRIBUTION WIDTH 15.8 % (11.5-14.5); WHITE BLOOD COUNT 11.2 10^3/uL (4.0-10.0)
[2017-11-22 05:46] LABS: ANION GAP 13 MEQ/L (8-16); BLOOD UREA NITROGEN 4 MG/DL (7-18); CALCIUM LEVEL 8.8 MG/DL (8.5-10.1); CARBON DIOXIDE LEVEL 23 MEQ/L (21-32); CHLORIDE LEVEL 100 MEQ/L (98-107); CREATININE FOR GFR 0.83 MG/DL (0.70-1.30); GLOMERULAR FILTRATION RATE > 60.0 (>60); GLUCOSE, FASTING 67 MG/DL (70-100); POTASSIUM SERUM 3.2 MEQ/L (3.5-5.1); SODIUM LEVEL 136 MEQ/L (136-145)
[2017-11-22] MEDS: POTASSIUM CHLORIDE 10 MEQ SR TABLET PO (06:36)
[2017-11-22] MEDS: cloNIDine 0.1 MG TAB PO ×2 (06:37→20:36)
[2017-11-22] MEDS: FOLIC ACID 1 MG TAB PO (09:22)
[2017-11-22] MEDS: THIAMINE 100 MG TAB PO (09:22)
[2017-11-22] MEDS: levETIRAcetam 250MG TABLET (KEPPRA) PO ×2 (09:22→20:35)
[2017-11-22] MEDS: HEPARIN SOD (PORCINE) 5000 UNITS/ML VIAL SQ ×2 (09:23→20:36)
[2017-11-22] MEDS: NICOTINE 14 MG/24 HR TRANSDERMAL TD (21:37)
[2017-11-22 23:43] LABS: VANCOMYCIN LEVEL TROUGH 6.3 UG/ML (10.0-20.0)
[2017-11-23] MEDS: VANCOMYCIN HCL 500 MG in D5W MINI-BAG PLUS 100 ML IV (01:27)
[2017-11-23] MEDS: PIPERACILLIN/TAZOBACTAM SOD 3.375 GM in D5W MINI-BAG PLUS 50 ML IV (03:40)
[2017-11-23 05:30] LABS: HEMATOCRIT 41.1 % (42.0-52.0); HEMOGLOBIN 14.2 g/dl (13.5-17.5); MEAN CORPUSCULAR HGB CONC 34.5 g/dl (32.0-36.5); MEAN CORPUSCULAR VOLUME 89.7 fl (80.0-96.0); PLATELET COUNT, AUTOMATED 179 10^3/uL (150-450); RED BLOOD COUNT 4.58 10^6/uL (4.30-6.10); RED CELL DISTRIBUTION WIDTH 16.2 % (11.5-14.5); WHITE BLOOD COUNT 10.1 10^3/uL (4.0-10.0)
[2017-11-23 05:50] LABS: ANION GAP 20 MEQ/L (8-16); BLOOD UREA NITROGEN 2 MG/DL (7-18); CALCIUM LEVEL 8.9 MG/DL (8.5-10.1); CARBON DIOXIDE LEVEL 16 MEQ/L (21-32); CHLORIDE LEVEL 100 MEQ/L (98-107); CREATININE FOR GFR 0.85 MG/DL (0.70-1.30); GLOMERULAR FILTRATION RATE > 60.0 (>60); GLUCOSE, FASTING 64 MG/DL (70-100); POTASSIUM SERUM 3.5 MEQ/L (3.5-5.1); SODIUM LEVEL 136 MEQ/L (136-145)
[2017-11-23] MEDS ORDERED: VANCOMYCIN HCL 1,000 MG, VIAL MATE ADAPTER 1 EACH in D5W 250 ML IV (08:00)
[2017-11-23] MEDS: THIAMINE 100 MG TAB PO (08:39)
[2017-11-23] MEDS: levETIRAcetam 250MG TABLET (KEPPRA) PO ×2 (08:39→20:23)
[2017-11-23] MEDS: FOLIC ACID 1 MG TAB PO (08:40)
[2017-11-23] MEDS: HEPARIN SOD (PORCINE) 5000 UNITS/ML VIAL SQ ×2 (08:41→20:23)
[2017-11-23] MEDS: NICOTINE 14 MG/24 HR TRANSDERMAL TD (08:41)
[2017-11-23 10:07] LABS: DRVV SCREEN 41.4 SEC
[2017-11-23] MEDS: cloNIDine 0.1 MG TAB PO (20:23)
[2017-11-24 06:46] LABS: HEMOGLOBIN 14.4 g/dl (13.5-17.5); MEAN CORPUSCULAR HEMOGLOBIN 30.3 pg (27.0-33.0); MEAN CORPUSCULAR HGB CONC 34.3 g/dl (32.0-36.5); MEAN CORPUSCULAR VOLUME 88.4 fl (80.0-96.0); PLATELET COUNT, AUTOMATED 178 10^3/uL (150-450); RED BLOOD COUNT 4.75 10^6/uL (4.30-6.10); RED CELL DISTRIBUTION WIDTH 16.3 % (11.5-14.5); WHITE BLOOD COUNT 11.2 10^3/uL (4.0-10.0)
[2017-11-24 07:14] LABS: ANION GAP 12 MEQ/L (8-16); BLOOD UREA NITROGEN 3 MG/DL (7-18); CALCIUM LEVEL 9.1 MG/DL (8.5-10.1); CARBON DIOXIDE LEVEL 22 MEQ/L (21-32); CHLORIDE LEVEL 105 MEQ/L (98-107); GLOMERULAR FILTRATION RATE > 60.0 (>60); GLUCOSE, FASTING 85 MG/DL (70-100); POTASSIUM SERUM 3.9 MEQ/L (3.5-5.1); SODIUM LEVEL 139 MEQ/L (136-145)
[2017-11-24] MEDS: FOLIC ACID 1 MG TAB PO (08:51)
[2017-11-24] MEDS: levETIRAcetam 250MG TABLET (KEPPRA) PO (08:51)
[2017-11-24] MEDS: THIAMINE 100 MG TAB PO (08:51)
[2017-11-24] MEDS: NICOTINE 14 MG/24 HR TRANSDERMAL TD (08:51)
[2017-11-24] MEDS: HEPARIN SOD (PORCINE) 5000 UNITS/ML VIAL SQ (08:52)
[2017-11-24 09:03] LABS: HEPATITIS B SURFACE ANTIGEN NEGATIVE (NEGATIVE)
[2017-11-24 09:31] LABS: HEPATITIS C VIRUS ABY INDEX 0.1 INDEX (<0.8)
[2017-11-24 09:31] LABS: HEPATITIS B CORE ANTIBODY IGM NEGATIVE (NEGATIVE)
[2017-11-24 09:32] LABS: HIV 1&2 SCREEN CENTAUR NEGATIVE (NEGATIVE)
[2017-11-24 09:33] LABS: HEPATITIS A ANTIBODY IGM NEGATIVE (NEGATIVE)
== END 2017-11-24 13:10 | disposition home or self-care (01) | DRG 53 ==
LOC: M MS4PR 11-23 20:53 → M ED 05:42 → M ED INP 10:37 → M PCU 16:08
DX: R56.9 Unspecified convulsions (principal); I42.6 Alcoholic cardiomyopathy; F10.10 Alcohol abuse, uncomplicated; Z79.899 Other long term (current) drug therapy; F12.90 Cannabis use, unspecified, uncomplicated; D72.829 Elevated white blood cell count, unspecified; I10 Essential (primary) hypertension; F17.210 Nicotine dependence, cigarettes, uncomplicated

== ENCOUNTER 2018-02-13 10:30 | Emergency (ER) | payer OTHER ==
[2018-02-13 11:44] LABS: BASO # 0.1 10^3/uL (0.0-0.2); BASO % 0.5 % (0.0-1.0); EOS # 0.1 10^3/uL (0.0-0.50); EOS % 0.7 % (0.0-3.0); HEMATOCRIT 47.1 % (42.0-52.0); HEMOGLOBIN 15.9 g/dl (13.5-17.5); IMMATURE GRANULOCYTE % 0.4 % (0-3.0); LYMPH # 1.9 10^3/uL (1.5-6.5); LYMPH % 17.4 % (24.0-44.0); MEAN CORPUSCULAR HEMOGLOBIN 30.2 pg (27.0-33.0); MEAN CORPUSCULAR HGB CONC 33.8 g/dl (32.0-36.5); MEAN CORPUSCULAR VOLUME 89.5 fl (80.0-96.0); MONO # 0.5 10^3/uL (0.0-0.8); MONO % 4.9 % (0.0-5.0); NEUTROPHILS # 8.2 10^3/uL (1.8-7.7); NEUTROPHILS % 76.1 % (36.0-66.0); PLATELET COUNT, AUTOMATED 322 10^3/uL (150-450); RED BLOOD COUNT 5.26 10^6/uL (4.30-6.10); RED CELL DISTRIBUTION WIDTH 13.2 % (11.5-14.5); WHITE BLOOD COUNT 10.8 10^3/uL (4.0-10.0)
[2018-02-13 12:13] LABS: ANION GAP 8 MEQ/L (8-16); BLOOD UREA NITROGEN 12 MG/DL (7-18); CALCIUM LEVEL 9.5 MG/DL (8.5-10.1); CARBON DIOXIDE LEVEL 24 MEQ/L (21-32); CHLORIDE LEVEL 104 MEQ/L (98-107); CREATININE FOR GFR 0.95 MG/DL (0.70-1.30); GLOMERULAR FILTRATION RATE > 60.0 (>60); GLUCOSE, FASTING 84 MG/DL (70-100); POTASSIUM SERUM 5.3 MEQ/L (3.5-5.1); SODIUM LEVEL 136 MEQ/L (136-145)
[2018-02-13 12:14] LABS: ALBUMIN 4.1 GM/DL (3.2-5.2); ALBUMIN/GLOBULIN RATIO 1.41 (1.00-1.93); ALKALINE PHOSPHATASE 69 U/L (45-117); ALT/SGPT 17 U/L (12-78); AST/SGOT 12 U/L (7-37); BILIRUBIN,DIRECT 0.1 MG/DL (0.0-0.2); BILIRUBIN,TOTAL 0.5 MG/DL (0.2-1.0); CPK CREATINE PHOSPHOKINASE 58 U/L (39-308); FREE T4 1.19 NG/DL (0.76-1.46); LIPASE 73 U/L (73-393); MAGNESIUM LEVEL 1.9 MG/DL (1.8-2.4); MB/CK RELATIVE INDEX 2.07 (< OR =4); PHOSPHORUS LEVEL 3.4 MG/DL (2.5-4.9); TROPONIN I < 0.02 NG/ML (< 0.10)
[2018-02-13] MEDS: SOD POLYSTYRENE SULFONATE SUSP 15 GM/60 ML UD PO (13:09)
== END 2018-02-13 13:12 | disposition home or self-care (01) ==
LOC: M ED 10:30
DX: E87.5 Hyperkalemia (principal); I49.9 Cardiac arrhythmia, unspecified; R00.0 Tachycardia, unspecified; R11.2 Nausea with vomiting, unspecified; Z87.442 Personal history of urinary calculi; Z79.899 Other long term (current) drug therapy; F19.11 Other psychoactive substance abuse, in remission
CPT/HCPCS: 93005

== ENCOUNTER → 2018-02-15 | Outpatient (REF) | payer OTHER ==
[2018-02-15 18:13] LABS: ANION GAP 5 MEQ/L (8-16); BLOOD UREA NITROGEN 13 MG/DL (7-18); CALCIUM LEVEL 9.1 MG/DL (8.5-10.1); CARBON DIOXIDE LEVEL 30 MEQ/L (21-32); CHLORIDE LEVEL 106 MEQ/L (98-107); GLOMERULAR FILTRATION RATE > 60.0 (>60); GLUCOSE, FASTING 62 MG/DL (70-100); POTASSIUM SERUM 4.6 MEQ/L (3.5-5.1); SODIUM LEVEL 141 MEQ/L (136-145)
== END ==
LOC: M SFHCPLAZ 15:39
DX: E87.5 Hyperkalemia (principal)

== ENCOUNTER 2018-02-26 10:58 | Emergency (ER) | payer OTHER ==
[2018-02-26 11:34] LABS: BASO % 0.4 % (0.0-1.0); EOS # 0.1 10^3/uL (0.0-0.50); EOS % 0.9 % (0.0-3.0); HEMATOCRIT 45.3 % (42.0-52.0); HEMOGLOBIN 15.3 g/dl (13.5-17.5); IMMATURE GRANULOCYTE % 0.5 % (0-3.0); LYMPH # 1.5 10^3/uL (1.5-6.5); LYMPH % 13.9 % (24.0-44.0); MEAN CORPUSCULAR HEMOGLOBIN 30.5 pg (27.0-33.0); MEAN CORPUSCULAR HGB CONC 33.8 g/dl (32.0-36.5); MEAN CORPUSCULAR VOLUME 90.2 fl (80.0-96.0); MONO # 0.5 10^3/uL (0.0-0.8); MONO % 4.9 % (0.0-5.0); NEUTROPHILS # 8.8 10^3/uL (1.8-7.7); NEUTROPHILS % 79.4 % (36.0-66.0); PLATELET COUNT, AUTOMATED 316 10^3/uL (150-450); RED BLOOD COUNT 5.02 10^6/uL (4.30-6.10); RED CELL DISTRIBUTION WIDTH 13.1 % (11.5-14.5); WHITE BLOOD COUNT 11.1 10^3/uL (4.0-10.0)
[2018-02-26 11:41] LABS: INR 0.99; PROTHROMBIN TIME 13.2 SECONDS (12.1-14.4)
[2018-02-26 11:42] LABS: PARTIAL THROMBOPLASTIN TIME 29.2 SECONDS (25.4-37.6)
[2018-02-26 12:05] LABS: ALBUMIN 4.1 GM/DL (3.2-5.2); ALBUMIN/GLOBULIN RATIO 1.52 (1.00-1.93); ALKALINE PHOSPHATASE 74 U/L (45-117); ALT/SGPT 16 U/L (12-78); AMYLASE 71 U/L (25-115); ANION GAP 7 MEQ/L (8-16); AST/SGOT 9 U/L (7-37); BILIRUBIN,DIRECT 0.1 MG/DL (0.0-0.2); BILIRUBIN,TOTAL 0.6 MG/DL (0.2-1.0); BLOOD UREA NITROGEN 14 MG/DL (7-18); CALCIUM LEVEL 9.3 MG/DL (8.5-10.1); CARBON DIOXIDE LEVEL 26 MEQ/L (21-32); CHLORIDE LEVEL 108 MEQ/L (98-107); CPK CREATINE PHOSPHOKINASE 60 U/L (39-308); CREATININE FOR GFR 0.98 MG/DL (0.70-1.30); GLOMERULAR FILTRATION RATE > 60.0 (>60); GLUCOSE, FASTING 82 MG/DL (70-100); LIPASE 57 U/L (73-393); MAGNESIUM LEVEL 1.8 MG/DL (1.8-2.4); MB/CK RELATIVE INDEX 2.33 (< OR =4); POTASSIUM SERUM 5.5 MEQ/L (3.5-5.1); SODIUM LEVEL 141 MEQ/L (136-145); TOTAL PROTEIN 6.8 GM/DL (6.4-8.2); TROPONIN I < 0.02 NG/ML (< 0.10)
[2018-02-26 13:31] LABS: ETHYL ALCOHOL (ETHANOL) < 0.003 % (0.000-0.010)
[2018-02-26 13:48] LABS: AMPHETAMINES LEVEL URINE NEGATIVE (NEGATIVE); BARBITURATES URINE NEGATIVE (NEGATIVE); BENZODIAZEPINES URINE NEGATIVE (NEGATIVE); CANNABINOIDS URINE POSITIVE (NEGATIVE); COCAINE METABOLITE URINE NEGATIVE (NEGATIVE); METHADONE URINE NEGATIVE (NEGATIVE); OPIATES URINE NEGATIVE (NEGATIVE); PHENCYCLIDINE URINE NEGATIVE (NEGATIVE)
[2018-02-26] MEDS: SOD POLYSTYRENE SULFONATE SUSP 15 GM/60 ML UD PO (14:15)
== END 2018-02-26 14:25 | disposition home or self-care (01) ==
LOC: M ED 10:58
DX: E87.5 Hyperkalemia (principal)
CPT/HCPCS: 93005

== ENCOUNTER → 2018-04-05 | Outpatient (CLI) | payer OTHER ==
[~2018-04-05] MED LIST changes: +AMLO25TA PO; +CIPR-249 PO; +CIPR-250 PO; +CLON-412 PO; +CLONI1TA PO; +FERR32TA PO; +FLAG500T PO; +FLUOXETINE; +FOLI1TAB5 PO; +KEPP10002 PO; -LORazepam 2 MG/ML VIAL (J2060) As Ordered; +NICO14PA TD; +No Historical Meds; +ONDA4TAB6 PO; +POTA4.25; +ROZE8TAB16 PO; +THIA100T7 PO; +THIA100TA PO; +VITMTA PO; +ZOFR4TAB14 PO
[2018-04-05 19:32] LABS: BASO % 0.3 % (0.0-1.0); EOS # 0.2 10^3/uL (0.0-0.50); EOS % 1.9 % (0.0-3.0); HEMATOCRIT 44.1 % (42.0-52.0); HEMOGLOBIN 14.8 g/dl (13.5-17.5); LYMPH # 2.5 10^3/uL (1.5-6.5); LYMPH % 24.5 % (24.0-44.0); MEAN CORPUSCULAR HEMOGLOBIN 29.9 pg (27.0-33.0); MEAN CORPUSCULAR HGB CONC 33.6 g/dl (32.0-36.5); MEAN CORPUSCULAR VOLUME 89.1 fl (80.0-96.0); MONO # 0.6 10^3/uL (0.0-0.8); MONO % 5.5 % (0.0-5.0); NEUTROPHILS # 6.8 10^3/uL (1.8-7.7); NEUTROPHILS % 67.6 % (36.0-66.0); PLATELET COUNT, AUTOMATED 278 10^3/uL (150-450); RED BLOOD COUNT 4.95 10^6/uL (4.30-6.10); WHITE BLOOD COUNT 10.1 10^3/uL (4.0-10.0)
[2018-04-05 19:36] LABS: ALBUMIN 4.5 GM/DL (3.2-5.2); ALT/SGPT 20 U/L (12-78); BILIRUBIN,TOTAL 0.6 MG/DL (0.2-1.0); BLOOD UREA NITROGEN 9 MG/DL (7-18); CALCIUM LEVEL 9.3 MG/DL (8.5-10.1); CARBON DIOXIDE LEVEL 28 MEQ/L (21-32); CHLORIDE LEVEL 106 MEQ/L (98-107); CREATININE FOR GFR 1.01 MG/DL (0.70-1.30); GLOMERULAR FILTRATION RATE > 60.0 (>60); GLUCOSE, FASTING 75 MG/DL (70-100); POTASSIUM SERUM 4.4 MEQ/L (3.5-5.1); SODIUM LEVEL 140 MEQ/L (136-145)
== END ==
LOC: M WUC 17:17
PROVIDERS: ATTEND Student in an Organized Health Care Education/Training Program
DX: R56.9 Unspecified convulsions (principal)

== ENCOUNTER → 2018-06-23 | Outpatient (CLI) | payer OTHER ==
[~2018-06-23] MED LIST changes: +FOLI1TAB11 PO; -FOLI1TAB5 PO
[2018-06-23 17:29] LABS: BASO % 0.4 % (0.0-1.0); EOS # 0.2 10^3/uL (0.0-0.50); HEMATOCRIT 50.4 % (42.0-52.0); HEMOGLOBIN 16.6 g/dl (13.5-17.5); LYMPH # 2.4 10^3/uL (1.5-6.5); LYMPH % 20.8 % (24.0-44.0); MEAN CORPUSCULAR HEMOGLOBIN 29.7 pg (27.0-33.0); MEAN CORPUSCULAR HGB CONC 32.9 g/dl (32.0-36.5); MEAN CORPUSCULAR VOLUME 90.2 fl (80.0-96.0); MONO # 0.6 10^3/uL (0.0-0.8); MONO % 5.3 % (0.0-5.0); NEUTROPHILS # 8.1 10^3/uL (1.8-7.7); NEUTROPHILS % 71.2 % (36.0-66.0); PLATELET COUNT, AUTOMATED 290 10^3/uL (150-450); RED BLOOD COUNT 5.59 10^6/uL (4.30-6.10); WHITE BLOOD COUNT 11.4 10^3/uL (4.0-10.0)
[2018-06-23 18:10] LABS: BLOOD UREA NITROGEN 10 MG/DL (7-18); CARBON DIOXIDE LEVEL 25 MEQ/L (21-32); CHLORIDE LEVEL 106 MEQ/L (98-107); CREATININE FOR GFR 0.96 MG/DL (0.70-1.30); GLOMERULAR FILTRATION RATE > 60.0 (>60); GLUCOSE, FASTING 80 MG/DL (70-100); POTASSIUM SERUM 5.7 MEQ/L (3.5-5.1); SODIUM LEVEL 139 MEQ/L (136-145)
[2018-06-23 18:11] LABS: ALBUMIN 4.6 GM/DL (3.2-5.2); ALT/SGPT 19 U/L (12-78); BILIRUBIN,TOTAL 0.6 MG/DL (0.2-1.0); CALCIUM LEVEL 9.4 MG/DL (8.5-10.1); TOTAL PROTEIN 7.5 GM/DL (6.4-8.2)
== END ==
LOC: M WUC 14:33
PROVIDERS: ATTEND Psychiatry & Neurology Neurology
DX: G43.909 Migraine, unspecified, not intractable, without status migrainosus (principal); R56.9 Unspecified convulsions

== ENCOUNTER → 2019-11-22 | Outpatient (CLI) | payer OTHER | LOC: M LABSMTC 09:30 | PROVIDERS: ATTEND Nurse Practitioner Family | DX: Z11.59 Encounter for screening for other viral diseases (principal); Z20.828 Contact with and (suspected) exposure to other viral communicable diseases | CPT/HCPCS: C9803; U0003 ==

== ENCOUNTER → 2019-12-07 | Outpatient (CLI) | payer OTHER ==
[2019-12-07 18:01] LABS: BASO % 0.5 % (0.0-1.0); EOS # 0.4 10^3/uL (0.0-0.5); EOS % 4.7 % (0.0-3.0); HEMATOCRIT 50.4 % (42.0-52.0); HEMOGLOBIN 16.8 g/dl (13.5-17.5); LYMPH # 2.4 10^3/uL (1.5-5.0); LYMPH % 29.7 % (24.0-44.0); MEAN CORPUSCULAR HEMOGLOBIN 31.8 pg (27.0-33.0); MEAN CORPUSCULAR HGB CONC 33.3 g/dl (32.0-36.5); MEAN CORPUSCULAR VOLUME 95.3 fl (80.0-96.0); MONO # 0.4 10^3/uL (0.0-0.8); MONO % 5.5 % (0.0-5.0); NEUTROPHILS # 4.8 10^3/uL (1.5-8.5); NEUTROPHILS % 59.1 % (36.0-66.0); PLATELET COUNT, AUTOMATED 249 10^3/uL (150-450); RED BLOOD COUNT 5.29 10^6/uL (4.30-6.10); WHITE BLOOD COUNT 8.1 10^3/uL (4.0-10.0)
[2019-12-07 18:38] LABS: ALBUMIN 4.4 GM/DL (3.2-5.2); ALT/SGPT 15 U/L (12-78); BILIRUBIN,TOTAL 0.4 MG/DL (0.2-1.0); BLOOD UREA NITROGEN 7 MG/DL (7-18); CALCIUM LEVEL 9.6 MG/DL (8.5-10.1); CARBON DIOXIDE LEVEL 29 MEQ/L (21-32); CHLORIDE LEVEL 109 MEQ/L (98-107); CREATININE FOR GFR 0.97 MG/DL (0.70-1.30); GLOMERULAR FILTRATION RATE > 60.0 (>60); GLUCOSE, FASTING 82 MG/DL (70-100); POTASSIUM SERUM 6.7 MEQ/L (3.5-5.1); SODIUM LEVEL 141 MEQ/L (136-145); TOTAL PROTEIN 7.2 GM/DL (6.4-8.2); VALPROIC ACID (DEPAKOTE) 121.5 UG/ML (50.0-100.0)
== END ==
LOC: M WUC 14:15
PROVIDERS: ATTEND Psychiatry & Neurology Neurology
DX: G40.89 Other seizures (principal)

== ENCOUNTER → 2020-02-16 | Outpatient (CLI) | payer OTHER ==
[2020-02-16 17:07] LABS: BASO % 0.5 % (0.0-1.0); EOS # 0.4 10^3/uL (0.0-0.5); EOS % 5.3 % (0.0-3.0); HEMOGLOBIN 14.7 g/dl (13.5-17.5); LYMPH # 2.4 10^3/uL (1.5-5.0); LYMPH % 32.3 % (24.0-44.0); MEAN CORPUSCULAR HEMOGLOBIN 30.9 pg (27.0-33.0); MEAN CORPUSCULAR VOLUME 96.8 fl (80.0-96.0); MONO # 0.6 10^3/uL (0.0-0.8); MONO % 7.8 % (0.0-5.0); NEUTROPHILS % 53.7 % (36.0-66.0); PLATELET COUNT, AUTOMATED 220 10^3/uL (150-450); RED BLOOD COUNT 4.75 10^6/uL (4.30-6.10); WHITE BLOOD COUNT 7.4 10^3/uL (4.0-10.0)
[2020-02-16 17:30] LABS: ALBUMIN 4.2 GM/DL (3.2-5.2); ALT/SGPT 11 U/L (12-78); BILIRUBIN,TOTAL 0.6 MG/DL (0.2-1.0); BLOOD UREA NITROGEN 10 MG/DL (7-18); CALCIUM LEVEL 8.8 MG/DL (8.5-10.1); CARBON DIOXIDE LEVEL 28 MEQ/L (21-32); CHLORIDE LEVEL 109 MEQ/L (98-107); GLOMERULAR FILTRATION RATE > 60.0 (>60); GLUCOSE, FASTING 82 MG/DL (70-100); POTASSIUM SERUM 5.6 MEQ/L (3.5-5.1); SODIUM LEVEL 142 MEQ/L (136-145); TOTAL PROTEIN 6.8 GM/DL (6.4-8.2); VALPROIC ACID (DEPAKOTE) 84.2 UG/ML (50.0-100.0)
== END ==
LOC: M WUC 10:37
PROVIDERS: ATTEND Psychiatry & Neurology Neurology
DX: R56.9 Unspecified convulsions (principal); Z51.81 Encounter for therapeutic drug level monitoring

== ENCOUNTER → 2020-09-03 | Outpatient (CLI) | payer OTHER ==
[2020-09-03 11:53] LABS: BASO # 0.1 10^3/uL (0.0-0.2); BASO % 0.5 % (0.0-1.0); EOS # 0.5 10^3/uL (0.0-0.5); EOS % 5.3 % (0.0-3.0); HEMATOCRIT 48.5 % (42.0-52.0); HEMOGLOBIN 15.9 g/dl (13.5-17.5); LYMPH # 2.9 10^3/uL (1.5-5.0); LYMPH % 30.3 % (24.0-44.0); MEAN CORPUSCULAR HEMOGLOBIN 30.6 pg (27.0-33.0); MEAN CORPUSCULAR HGB CONC 32.8 g/dl (32.0-36.5); MEAN CORPUSCULAR VOLUME 93.4 fl (80.0-96.0); MONO # 0.7 10^3/uL (0.0-0.8); MONO % 7.9 % (2.0-8.0); NEUTROPHILS # 5.2 10^3/uL (1.5-8.5); NEUTROPHILS % 55.6 % (36.0-66.0); PLATELET COUNT, AUTOMATED 303 10^3/uL (150-450); RED BLOOD COUNT 5.19 10^6/uL (4.30-6.10); WHITE BLOOD COUNT 9.4 10^3/uL (4.0-10.0)
[2020-09-03 12:21] LABS: ALBUMIN 4.4 GM/DL (3.2-5.2); ALT/SGPT 15 U/L (12-78); BILIRUBIN,TOTAL 0.6 MG/DL (0.2-1.0); BLOOD UREA NITROGEN 7 MG/DL (7-18); CALCIUM LEVEL 9.6 MG/DL (8.5-10.1); CARBON DIOXIDE LEVEL 31 MEQ/L (21-32); CHLORIDE LEVEL 103 MEQ/L (98-107); CREATININE FOR GFR 0.84 MG/DL (0.70-1.30); GLOMERULAR FILTRATION RATE > 60.0 (>60); GLUCOSE, FASTING 89 MG/DL (70-100); POTASSIUM SERUM 4.8 MEQ/L (3.5-5.1); SODIUM LEVEL 139 MEQ/L (136-145); TOTAL PROTEIN 7.3 GM/DL (6.4-8.2)
== END ==
LOC: M WUC 09:02
PROVIDERS: ATTEND Psychiatry & Neurology Neurology
DX: G40.89 Other seizures (principal)

== ENCOUNTER → 2021-01-09 | Outpatient (REF) | payer OTHER ==
[2021-01-09 18:57] LABS: FREE T4 1.04 NG/DL (0.76-1.46); THYROID STIMULATING HORMONE 1.21 uIU/ML (0.358-3.740)
== END ==
LOC: M LAB REF 17:28
PROVIDERS: ATTEND Internal Medicine Nephrology
DX: E87.5 Hyperkalemia (principal); N18.2 Chronic kidney disease, stage 2 (mild)

== ENCOUNTER → 2021-01-30 | Outpatient (REF) | payer OTHER | LOC: M LAB REF 17:25 | PROVIDERS: ATTEND Internal Medicine Nephrology | DX: E87.5 Hyperkalemia (principal) ==

== ENCOUNTER → 2021-02-10 | Outpatient (CLI) | payer OTHER ==
--- NOTE | 2021-02-10 14:52 | REP ---
INDICATION: CKD 2. COMPARISON: 09/09/2017. TECHNIQUE: Real-time sonographic evaluation of the kidneys is performed. FINDINGS: Renal cortical echogenicity pattern is normal bilaterally and contours are smooth. There is no evidence of hydronephrosis, cyst, mass, or calculus in either kidney. The right kidney measures 11.0 x 5.0 x 4.2 cm. Left renal dimensions are 11.1 x 5.2 x 5.0 cm. The urinary bladder is empty. IMPRESSION: Negative renal ultrasound. <Electronically signed by Roque Flynn > 02/10/21 [id number]
== END ==
LOC: M RAD 11:54
PROVIDERS: ATTEND Nurse Practitioner Family
DX: N18.2 Chronic kidney disease, stage 2 (mild) (principal); E87.5 Hyperkalemia

== ENCOUNTER → 2021-02-24 | Outpatient (CLI) | payer MEDICARE ==
[2021-02-24 17:55] LABS: BASO # 0.1 10^3/uL (0.0-0.2); BASO % 0.6 % (0.0-1.0); EOS # 0.4 10^3/uL (0.0-0.5); EOS % 3.4 % (0.0-3.0); HEMATOCRIT 44.8 % (42.0-52.0); LYMPH # 2.9 10^3/uL (1.5-5.0); LYMPH % 28.3 % (24.0-44.0); MEAN CORPUSCULAR HEMOGLOBIN 31.1 pg (27.0-33.0); MEAN CORPUSCULAR HGB CONC 33.5 g/dl (32.0-36.5); MEAN CORPUSCULAR VOLUME 92.9 fl (80.0-96.0); MONO # 0.7 10^3/uL (0.0-0.8); MONO % 6.4 % (2.0-8.0); NEUTROPHILS # 6.3 10^3/uL (1.5-8.5); NEUTROPHILS % 60.9 % (36.0-66.0); PLATELET COUNT, AUTOMATED 254 10^3/uL (150-450); RED BLOOD COUNT 4.82 10^6/uL (4.30-6.10); WHITE BLOOD COUNT 10.3 10^3/uL (4.0-10.0)
[2021-02-24 18:06] LABS: ALBUMIN 4.2 GM/DL (3.2-5.2); ALT/SGPT 16 U/L (12-78); BILIRUBIN,TOTAL 0.5 MG/DL (0.2-1.0); BLOOD UREA NITROGEN 5 MG/DL (7-18); CALCIUM LEVEL 9.6 MG/DL (8.5-10.1); CARBON DIOXIDE LEVEL 29 MEQ/L (21-32); CHLORIDE LEVEL 103 MEQ/L (98-107); CREATININE FOR GFR 0.99 MG/DL (0.70-1.30); GLOMERULAR FILTRATION RATE > 60.0 (>60); GLUCOSE, FASTING 66 MG/DL (70-100); POTASSIUM SERUM 5.1 MEQ/L (3.5-5.1); SODIUM LEVEL 139 MEQ/L (136-145); TOTAL PROTEIN 6.7 GM/DL (6.4-8.2)
== END ==
LOC: M PLALAB 14:54
PROVIDERS: ATTEND Psychiatry & Neurology Neurology
DX: R56.9 Unspecified convulsions (principal)

== ENCOUNTER → 2021-04-07 | Outpatient (REF) | payer MEDICARE, OTHER | LOC: M LAB REF 16:51 | PROVIDERS: ATTEND Nurse Practitioner Family | DX: E83.42 Hypomagnesemia (principal); F10.188 Alcohol abuse with other alcohol-induced disorder ==

== ENCOUNTER → 2021-04-08 | Outpatient (CLI) | payer MEDICARE, OTHER | LOC: M WUC 08:22 | PROVIDERS: ATTEND Nurse Practitioner Family | DX: E27.40 Unspecified adrenocortical insufficiency (principal); E87.5 Hyperkalemia ==

== ENCOUNTER → 2021-09-16 | Outpatient (CLI) | payer MEDICARE, OTHER | LOC: M WUC 08:28 | PROVIDERS: ATTEND Nurse Practitioner Family | DX: E27.40 Unspecified adrenocortical insufficiency (principal); E87.5 Hyperkalemia ==

== ENCOUNTER → 2022-01-23 | Outpatient (CLI) | payer MEDICARE, OTHER ==
[2022-01-29 01:07] LABS: LACOSAMIDE LEVEL 9.5 ug/mL (5.0-10.0); LEVETIRACETAM (KEPPRA) 16.8 ug/mL (10.0-40.0); OXCARBAZEPINE 26 ug/mL (10-35)
== END ==
LOC: M WUC 13:02
PROVIDERS: ATTEND Psychiatry & Neurology Clinical Neurophysiology
DX: G40.219 Localization-related (focal) (partial) symptomatic epilepsy and epileptic syndromes with complex partial seizures, intractable, without status epilepticus (principal)

== ENCOUNTER → 2023-05-28 | Outpatient (REF) | payer MEDICARE, OTHER ==
[2023-05-28 19:01] LABS: FERRITIN 51.3 NG/ML (10.5-307.3); PERCENT SATURATION 16.6 % (19.7-50.0)
== END ==
LOC: M LAB REF 17:42
PROVIDERS: ATTEND Nurse Practitioner Family
DX: D64.9 Anemia, unspecified (principal)

== ENCOUNTER → 2024-09-01 | Outpatient (CLI) | payer MEDICARE, OTHER ==
[~2024-09-01] MED LIST changes: +ONDA-282 PO; -ONDA4TAB6 PO
[2024-09-01 17:49] LABS: VALPROIC ACID (DEPAKOTE) 58.4 UG/ML (50.0-100.0)
[2024-09-01 17:53] LABS: ALKALINE PHOSPHATASE 73 U/L (40-129); ALT/SGPT 13 U/L (7.0-40); AST/SGOT 16 U/L (<34); BILIRUBIN,TOTAL 0.5 MG/DL (0.3-1.2); BLOOD UREA NITROGEN 6 MG/DL (9-23); CALCIUM LEVEL 9.4 MG/DL (8.5-10.1); CARBON DIOXIDE LEVEL 28 MMOL/L (20-31); CHLORIDE LEVEL 104 MMOL/L (98-107); CREATININE FOR GFR 0.86 MG/DL (0.70-1.30); GLOMERULAR FILTRATION RATE > 90.0 (>60); GLUCOSE, FASTING 68 MG/DL (60-100); SODIUM LEVEL 139 MMOL/L (136-145); TOTAL PROTEIN 6.3 G/DL (5.7-8.2)
[2024-09-06 13:17] LABS: OXCARBAZEPINE 26.9 mcg/mL (8.0-35.0)
== END ==
LOC: M WUC 14:37
PROVIDERS: ATTEND Psychiatry & Neurology Clinical Neurophysiology
DX: G40.219 Localization-related (focal) (partial) symptomatic epilepsy and epileptic syndromes with complex partial seizures, intractable, without status epilepticus (principal); E87.5 Hyperkalemia

== ENCOUNTER → 2024-09-01 | Outpatient (CLI) | payer MEDICARE, OTHER | LOC: M WUC 14:40 | PROVIDERS: ATTEND Nurse Practitioner Family | DX: E87.5 Hyperkalemia (principal) ==

== ENCOUNTER → 2025-01-12 | Outpatient (CLI) | payer MEDICARE | LOC: M WHC 09:14 | PROVIDERS: ATTEND Nurse Practitioner Family | DX: R10.11 Right upper quadrant pain (principal); R16.0 Hepatomegaly, not elsewhere classified; K76.0 Fatty (change of) liver, not elsewhere classified ==

== ENCOUNTER → 2025-03-20 | Outpatient (REF) | payer MEDICARE ==
[2025-03-20 18:17] LABS: VALPROIC ACID (DEPAKOTE) 65.5 UG/ML (50.0-100.0)
[2025-03-20 18:18] LABS: IRON (FE) 61.0 UG/DL (65-175)
[2025-03-20 18:20] LABS: PERCENT SATURATION 22.1 % (19.7-50.0)
== END ==
LOC: M LAB REF 17:39
PROVIDERS: ATTEND Nurse Practitioner Family
DX: E61.1 Iron deficiency (principal); G40.101 Localization-related (focal) (partial) symptomatic epilepsy and epileptic syndromes with simple partial seizures, not intractable, with status epilepticus